=== PATIENT | female | born 1945 | race Caucasian/White ===

== ENCOUNTER → 2016-09-08 | Outpatient (CLI) | payer BC ==
[~2016-09-08] MED LIST: ASPI81TA28 PO; ATOR-54 PO; CLB200 PO; CYAN100020 PO; FENO48TA9 PO; FERR325T5 PO; HYDR25TA4 PO; LORA-741 PO; METO-551 PO; MULT-506 PO; PARO1TAB29 PO; RANI300T2 PO; SYN150 PO
--- NOTE | 2016-09-08 16:11 | MAMMOGRAPHY REPORT ---
BILATERAL DIGITAL SCREENING MAMMOGRAM WITH CAD: 09/08/2016 CLINICAL HISTORY: Routine screening. Patient has no complaints. TECHNIQUE: Current study was also evaluated with a Computer Aided Detection (CAD) system. Bilatera l CC and MLO views were obtained. COMPARISON: Comparison is made to exams dated: 09/07/2015 mammogram, 09/04/2014 mammogram, 09/03/2013 ma mmogram, 08/20/2012 mammogram, 08/19/2011 mammogram, and 07/21/2009 mammogram - [facility]. BREAST COMPOSITION: The tissue of both breasts is almost entirely fatty. FINDINGS: No suspicious masses, calcifications, or areas of architectural distortion are noted in e ither breast. There has been no significant interval change compared to prior exams. Scattered bilat eral benign-appearing calcifications are not significantly changed. IMPRESSION: ACR BI-RADS CATEGORY 2: BENIGN There is no mammographic evidence of malignancy. A 1 year screening mammogram is recommended. The p atient will receive written notification of the results. Approximately 10% of breast cancers are not detected with mammography. A negative mammographic repor t should not delay biopsy if a clinically suggestive mass is present. Maira De Leon M.D. /:09/08/2016 12:43:57 Job Coach/Job Developer: Ayah Aguillon, [facility] letter sent: Normal 1/2 BI-RADS Code: ACR BI-RADS Category 2: Benign
== END | disposition home or self-care (01) ==
LOC: C.MAMM 09:50
PROVIDERS: ATTEND Internal Medicine
DX: Z12.31 Encounter for screening mammogram for malignant neoplasm of breast (principal)

== ENCOUNTER → 2016-10-28 | Outpatient (CLI) | payer BC ==
[2016-10-28 11:14] LABS: BASO % 0.5 %; BASO ABS # 0.04 K/uL (0-0.2); COMPLETE YES; EOS % 1.4 %; HEMATOCRIT 42.3 % (37-47); IG% 0.4 %; LYMPH % 13.2 %; LYMPH ABS # 1.04 K/uL (1.2-3.4); MEAN CELL VOLUME 89.2 fL (80-100); MEAN CORPUSCULAR HEMOGLOBIN 28.9 pg (25-34); MEAN CORPUSCULAR HGB CONC 32.4 g/dl (32-36); MEAN PLATELET VOLUME 9.4 fL (7.4-10.4); NEUT % 77.5 %; PLATELET COUNT 299 K/uL (130-400); RED BLOOD COUNT 4.74 M/uL (4.2-5.4); WHITE BLOOD COUNT 7.86 K/uL (4.8-10.8)
[2016-10-28 11:29] LABS: BLOOD UREA NITROGEN 26 mg/dl (7-18); BUN/CREATININE RATIO 31.4 (10-20); CALCIUM 9.6 mg/dl (8.5-10.1); CARBON DIOXIDE 33 mmol/L (21-32); CHLORIDE 100 mmol/L (98-107); CREATININE 0.84 mg/dl (0.60-1.20); GLUCOSE 126 mg/dl (70-99); POTASSIUM 3.5 mmol/L (3.5-5.1); SODIUM 141 mmol/L (136-145)
== END | disposition home or self-care (01) ==
LOC: C.LAB1850 10:24
PROVIDERS: ATTEND Urology
DX: Z01.812 Encounter for preprocedural laboratory examination (principal); N39.41 Urge incontinence

== ENCOUNTER → 2016-10-31 | Outpatient (CLI) | payer BC ==
--- NOTE | 2016-10-31 11:05 | DIAGNOSTIC IMAGING REPORT ---
LUMBAR SPINE MRI HISTORY: Back pain LUMBAR STENOSIS TECHNIQUE: Multiplanar multisequence MRI of the lumbar spine was performed without the use of contrast. COMPARISON: None. FINDINGS: For the purpose of the report the L5-S1 disc space will be located on axial image 27 of 30. Grade 3 anterolisthesis of L4 on L5. This is associated with a posterior spondylolysis. Probable uterine fibroids. Bone marrow signal characteristics are unremarkable. L1-L2: Minimal broad-based disc bulge L2-L3: Significant multifactorial spinal stenosis. Moderate narrowing of the neuroforamina bilaterally. L3-L4: Mild transverse narrowing of spinal canal. Primarily secondary to hypertrophic changes of posterior elements. Mild broad-based bulging disc. Mild narrowing left neural foramina. L4-L5: Grade 3 anterolisthesis of L4 on L5. Posterior spondylolysis. Moderate transverse dimension narrowing of spinal canal. Significant narrowing of the neuroforamina bilaterally. L5-S1: No significant central canal or neural foraminal narrowing. IMPRESSION: 1. Grade 3 spondylolisthesis L4 on L5. 2. L4 is subluxed anteriorly 1.5 cm in relation L5. 3. Moderate transverse narrowing of spinal canal at L at L4-L5 with significant narrowing of the neural foramina bilaterally 4. Significant multifactorial spinal stenosis at L2-L3 and L3-L4. 5. Several uterine fibroids. Electronically signed by: Kwan Lye M.D. 10/31/2016 11:03 AM Dictated Date/Time: 10/31/2016 10:57 AM
== END | disposition home or self-care (01) ==
LOC: C.MRIBC 09:49
PROVIDERS: ATTEND Pain Medicine Interventional Pain Medicine
DX: M48.06 Spinal stenosis, lumbar region (principal); S33.140A Subluxation of L4/L5 lumbar vertebra, initial encounter; X58.XXXA Exposure to other specified factors, initial encounter; D25.9 Leiomyoma of uterus, unspecified

== ENCOUNTER → 2016-12-22 | Outpatient (CLI) | payer BC ==
[2016-12-22 10:54] LABS: ALT/SGPT 35 U/L (12-78); BLOOD UREA NITROGEN 29 mg/dl (7-18); CARBON DIOXIDE 35 mmol/L (21-32); CHLORIDE 100 mmol/L (98-107); CHOLESTEROL 165 mg/dl (0-200); CREATININE 0.91 mg/dl (0.60-1.20); GLUCOSE 85 mg/dl (70-99); POTASSIUM 3.2 mmol/L (3.5-5.1); SODIUM 141 mmol/L (136-145); TRIGLYCERIDES 75 mg/dl (0-150); VERY LOW DENSITY LIPOPROT CALC 15 mg/dl
[2016-12-22 10:59] LABS: CALCIUM 9.8 mg/dl (8.5-10.1)
[2016-12-22 11:05] LABS: ALB/GLOB RATIO 1.2 (0.9-2); ALKALINE PHOSPHATASE 64 U/L (45-117); AST/SGOT 23 U/L (15-37); CHOLESTEROL/HDL RATIO 2.1; HDL CHOLESTEROL 80 mg/dl; LDL CHOLESTEROL CALCULATED 70 mg/dl
== END | disposition home or self-care (01) ==
LOC: C.LAB1850 09:18
PROVIDERS: ATTEND Internal Medicine
DX: E03.9 Hypothyroidism, unspecified (principal); E78.00 Pure hypercholesterolemia, unspecified; E55.9 Vitamin D deficiency, unspecified; I10 Essential (primary) hypertension

== ENCOUNTER → 2017-01-30 | Outpatient (CLI) | payer BC ==
[2017-01-30 17:55] LABS: BLOOD UREA NITROGEN 35 mg/dl (7-18); BUN/CREATININE RATIO 40.6 (10-20); CARBON DIOXIDE 33 mmol/L (21-32); CHLORIDE 102 mmol/L (98-107); CREATININE 0.87 mg/dl (0.60-1.20); GLUCOSE 91 mg/dl (70-99); POTASSIUM 3.8 mmol/L (3.5-5.1); SODIUM 142 mmol/L (136-145)
[2017-01-30 18:03] LABS: CALCIUM 9.7 mg/dl (8.5-10.1)
== END ==
LOC: C.LABBFT 12:16
PROVIDERS: ATTEND Internal Medicine
DX: E87.6 Hypokalemia (principal)

== ENCOUNTER → 2017-05-05 | Outpatient (CLI) | payer BC ==
[2017-05-05 12:12] LABS: BASO % 0.4 %; BASO ABS # 0.03 K/uL (0-0.2); COMPLETE YES; EOS % 2.4 %; HEMATOCRIT 43.4 % (37-47); IG% 0.3 %; LYMPH % 17.9 %; LYMPH ABS # 1.29 K/uL (1.2-3.4); MEAN CELL VOLUME 91.6 fL (80-100); MEAN CORPUSCULAR HEMOGLOBIN 30.2 pg (25-34); MEAN CORPUSCULAR HGB CONC 32.9 g/dl (32-36); MEAN PLATELET VOLUME 9.8 fL (7.4-10.4); MONO % 10.1 %; NEUT % 68.9 %; PLATELET COUNT 269 K/uL (130-400); RED BLOOD COUNT 4.74 M/uL (4.2-5.4)
[2017-05-05 12:42] LABS: BLOOD UREA NITROGEN 29 mg/dl (7-18); BUN/CREATININE RATIO 36.5 (10-20); CALCIUM 9.7 mg/dl (8.5-10.1); CARBON DIOXIDE 34 mmol/L (21-32); CHLORIDE 102 mmol/L (98-107); GLUCOSE 84 mg/dl (70-99); POTASSIUM 3.5 mmol/L (3.5-5.1); SODIUM 140 mmol/L (136-145)
== END | disposition home or self-care (01) ==
LOC: C.LAB1850 11:30
PROVIDERS: ATTEND Urology
DX: Z01.812 Encounter for preprocedural laboratory examination (principal); N39.41 Urge incontinence

== ENCOUNTER → 2017-08-30 | Outpatient (CLI) | payer BC ==
[~2017-08-30] MED LIST changes: +CALC500C3 PO; +CEPH500C2 PO; +CHOL20007 PO; +CIPR1TAB11 PO; -CLB200 PO; -CYAN100020 PO; -FERR325T5 PO; +LEVO150T9 PO; -LORA-741 PO; -METO-551 PO; +METO25TA56 PO; -MULT-506 PO; -RANI300T2 PO; +RXC5 PO; -SYN150 PO
== END | disposition home or self-care (01) ==
LOC: C.LABSPEC 10:00
PROVIDERS: ATTEND Physician Assistant
DX: R39.9 Unspecified symptoms and signs involving the genitourinary system (principal)

== ENCOUNTER 2017-09-12 09:18 | Inpatient (IN) | payer BC, OTHER ==
[2017-08-17 11:44] VITALS: BMI 55.0
--- NOTE | 2017-08-17 12:21 | PAT Medication Instructions ---
Service Date Aug 17, 2017. Current Home Medication List Aspirin (Aspirin Ec), 81 MG PO HS Atorvastatin (Lipitor), 20 MG PO HS Calcium Carbonate (Tums), 1 TAB PO DAILY PRN for Indigestion Cholecalciferol (Vitamin D3), 5,000 UNITS PO HS Ciprofloxacin Tab (Cipro), 250 MG PO HS Fenofibrate (Tricor), 48 MG PO HS Hydrochlorothiazide (Hctz), 25 MG PO QAM Levothyroxine Sodium (Levothyroxine Sodium), 1 TAB PO QAM Metoprolol Tartrate (Lopressor) (Lopressor), 25 MG PO HS Paroxetine (Paxil), 40 MG PO QAM Medication Instructions For Your Scheduled Surgery - Hold the following medications 7 days prior to surgery per your surgeon's instructions: Aspirin (Aspirin Ec), 81 MG PO HS - Hold the following medications 24 hours prior to surgery: Fenofibrate (Tricor), 48 MG PO HS (do not take the night before surgery) - Hold the following medications the morning of surgery: Hydrochlorothiazide (Hctz), 25 MG PO QAM Calcium Carbonate (Tums), 1 TAB PO DAILY PRN for Indigestion - Take the following medications the morning of surgery with a sip of water: Paroxetine (Paxil), 40 MG PO QAM Levothyroxine Sodium (Levothyroxine Sodium), 1 TAB PO QAM - Take the following medications as scheduled the night before surgery: Metoprolol Tartrate (Lopressor) (Lopressor), 25 MG PO HS Cholecalciferol (Vitamin D3), 5,000 UNITS PO HS Ciprofloxacin Tab (Cipro), 250 MG PO HS Calcium Carbonate (Tums), 1 TAB PO DAILY PRN for Indigestion (if needed) Atorvastatin (Lipitor), 20 MG PO HS If you have any questions please call us at [phone] or [phone] or [phone]
--- NOTE | 2017-08-17 13:14 | DIAGNOSTIC IMAGING REPORT ---
CHEST 2 VIEWS ROUTINE CLINICAL HISTORY: 72 years-old Female presenting with preadmission chest x-ray. TECHNIQUE: PA and lateral views of the chest were obtained. COMPARISON: 04/08/2014. FINDINGS: Cardiac silhouette mildly enlarged as on prior exam. Tortuosity of the descending thoracic aorta. Lower lung opacity notable on lateral view, which may be either on the right or left on frontal view. No large effusion or pneumothorax. Degenerative changes of the thoracic spine. Upper abdomen normal. IMPRESSION: 1. Cardiomegaly with lower lung opacities possibly atelectasis. Electronically signed by: Stef Mir M.D. 08/17/2017 1:12 PM Dictated Date/Time: 08/17/2017 1:11 PM
[2017-08-17 13:34] LABS: BASO % 0.5 %; BASO ABS # 0.04 K/uL (0-0.2); EOS % 1.7 %; EOS ABS # 0.14 K/uL (0-0.5); HEMATOCRIT 41.6 % (37-47); HEMOGLOBIN 13.4 g/dL (12.0-16.0); IG# 0.02 K/uL (0.00-0.02); LYMPH % 13.3 %; LYMPH ABS # 1.13 K/uL (1.2-3.4); MEAN CELL VOLUME 90.6 fL (80-100); MEAN CORPUSCULAR HEMOGLOBIN 29.2 pg (25-34); MEAN CORPUSCULAR HGB CONC 32.2 g/dl (32-36); MEAN PLATELET VOLUME 10.1 fL (7.4-10.4); MONO % 8.3 %; NEUT ABS # 6.45 K/uL (1.4-6.5); PLATELET COUNT 280 K/uL (130-400); RED CELL DISTRIBUTION WIDTH CV 14.7 % (11.5-14.5); WHITE BLOOD COUNT 8.48 K/uL (4.8-10.8)
[2017-08-17 15:24] LABS: CALCIUM 9.5 mg/dl (8.5-10.1); CREATININE 0.8 mg/dl (0.60-1.20); POTASSIUM 3.8 mmol/L (3.5-5.1)
[~2017-09-12] VITALS: Ht 154.9 cm; Wt 130.6 kg
[2017-09-12] VITALS (8 sets, daily range): BP systolic 107–131; BP diastolic 54–69; PULSE 62–75; TEMP 36.4–37; O2SAT 92–100; Ht 154.9 cm; Wt 130.6 kg
[~2017-09-12 09:18] MED LIST changes: +CEFAZOLIN 3000MG IV PUSH 15 ML IV SCH; +CEFAZOLIN IV 3,000 MG in SYRINGE 0 ML IV SCH; -CEPH500C2 PO; +LACTATED RINGER'S 1000ML 1,000 ML IV SCH; -RXC5 PO
[2017-09-12] MEDS ORDERED: CEPH500C2 PO (09:56)
[2017-09-12] MEDS ORDERED: FENTANYL CITRATE INJ 50 MCG/1 ML 2 ML VIAL ONE ×4 (10:32→14:07)
[2017-09-12] MEDS ORDERED: MIDAZOLAM HCL 1 MG/ML 2ML VIAL ONE (10:32)
--- NOTE | 2017-09-12 10:48 | History & Physical Bridge Note ---
H&P Re-Evaluation Bridge Note: I have examined the patient, reviewed the History & Physical and in the interval since the performance of the History & Physical I have noted the following changes of clinical significance: No changes noted
--- NOTE | 2017-09-12 10:50 | History and Physical ---
History & Physical Date Sep 12, 2017. Chief Complaint Back and leg pain History of Present Illness The patient is a 72 year old female with complaints of back and leg pain Past Medical/Surgical History Medical Problems: (1) Anxiety State Nos (2) Esophageal Reflux (3) Hypertension Nos (4) Hypothyroidism Nos (5) Morbid Obesity (6) Osteoporosis Nos (7) Polyarthritis Nos-Mult (8) Right lower lobe pneumonia Additional History Hepatic Disease: No Endocrine Disorder: No Kidney Disease: No Hypertension: Yes Heart Disease: No Bleeding Tendencies: No Infectious Diseases: No Allergies Coded Allergies: No Known Allergies (Verified , 09/12/17) Home Medications Scheduled Aspirin (Aspirin Ec), 81 MG PO HS Atorvastatin (Lipitor), 20 MG PO HS Cephalexin Monohydrate (Keflex), 500 MG PO DAILY Cholecalciferol (Vitamin D3), 5,000 UNITS PO HS Fenofibrate (Tricor), 48 MG PO HS Hydrochlorothiazide (Hctz), 25 MG PO QAM Levothyroxine Sodium (Levothyroxine Sodium), 1 TAB PO QAM Metoprolol Tartrate (Lopressor) (Lopressor), 25 MG PO HS Paroxetine (Paxil), 40 MG PO QAM Scheduled PRN Calcium Carbonate (Tums), 1 TAB PO DAILY PRN for Indigestion Physical Examination Skin: warm/dry, no rash Eyes: normal inspection, EOMI, sclerae normal ENT: normal ENT inspection, pharynx normal Head: normocephalic, atraumatic Neck: supple, no adenopathy, trachea midline Respiratory/Chest: lungs clear, normal breath sounds, no respiratory distress Cardiovascular: regular rate, rhythm, no edema, no murmur Abdomen / GI: normal bowel sounds, non tender Back: normal inspection Extremities: normal inspection, normal range of motion Neurologic/Psych: no motor/sensory deficits, alert, normal reflexes, oriented x 3 Diagnosis Lumbar spinal stenosis with spondylolisthesis Plan of Treatment L2 to L5 decompression fusion
[2017-09-12] MEDS ORDERED: BACITRACIN 50000 UNIT VIAL ONE (10:59)
[2017-09-12] MEDS ORDERED: ALBUMIN HUMAN 5% 12.5 GM/250 ML VIAL IV ONE (11:00)
[2017-09-12] MEDS ORDERED: BUPIVACAINE 0.5 % 5 MG/1 ML MPF 30ML VIAL ONE (11:01)
[2017-09-12] MEDS ORDERED: EpINEphrine INJ 1MG/ML AMP 1 MG/ML AMP ONE (11:02)
[2017-09-12] MEDS ORDERED: HYDROmorphone INJ 2 MG/ML SYR/VIAL ONE ×2 (11:48→13:35)
[2017-09-12] MEDS ORDERED: ROCURONIUM BROMIDE 10 MG/ML 5 ML VIAL IV ONE (13:29)
[2017-09-12] MEDS ORDERED: EpHEDrine SULFATE 50MG/5ML SYR ONE ×2 (13:29→13:37)
[2017-09-12] MEDS ORDERED: DEXAMETHASONE SOD INJ 4 MG/ML VIAL ONE (13:29)
[2017-09-12] MEDS ORDERED: LIDOCAINE HCL 2% 2 ML VIAL (20MG/ML) ONE (13:29)
[2017-09-12] MEDS ORDERED: PROPOFOL IV EMULSION 10 MG/ML 20 ML VIAL IV ONE (13:29)
[2017-09-12] MEDS ORDERED: KETOROLAC TROMETHAMINE 30 MG/ML VIAL ONE (13:37)
[2017-09-12] MEDS ORDERED: GLYCOPYRROLATE INJ 0.2 MG/ML VIAL ONE (13:37)
[2017-09-12] MEDS ORDERED: NEOSTIGMINE METHYLSULFATE 1 MG/ML 10ML VIAL ONE (13:37)
[2017-09-12] MEDS ORDERED: ONDANSETRON INJ 2 MG/ML 2 ML VIAL ONE (13:37)
[2017-09-12] MEDS ORDERED: EpHEDrine SULFATE INJ 50 MG/ML AMP IV PRN (13:45)
[2017-09-12] MEDS ORDERED: PROMETHAZINE HCL INJ 12.5 MG in SODIUM CHLORIDE 0.9% 50ML 50 ML IV PRN ×2 (13:45→15:00)
[2017-09-12] MEDS ORDERED: ATROPINE SULFATE 0.1 MG/ML 5ML SYR IV PRN (13:45)
[2017-09-12] MEDS ORDERED: NALOXONE HCL 0.4 MG/1 ML VIAL/CARP IV PRN ×3 (13:45→15:00)
[2017-09-12] MEDS ORDERED: ONDANSETRON INJ 2 MG/ML 2 ML VIAL IV PRN ×2 (13:45→15:00)
[2017-09-12] MEDS ORDERED: FLUMAZENIL 0.1 MG/1 ML 10 ML VIAL IV PRN (13:45)
[2017-09-12] MEDS ORDERED: HYDROmorphone INJ 1 MG/ML SYR IV PRN (13:45)
[2017-09-12] MEDS ORDERED: LABETALOL HCL IV 5 MG/ML 20ML IV PRN (13:45)
[2017-09-12] MEDS ORDERED: FLOSEAL HEMOSTATIC MATRIX 10ML TOP ONE (14:30)
--- NOTE | 2017-09-12 14:38 | DIAGNOSTIC IMAGING REPORT ---
LUMBAR SPINE, INTRAOPERATIVE FLUOROSCOPY HISTORY: L2-L5 decompression and fusion. FLUOROSCOPY TIME: 57 seconds. FINDINGS: Intraoperative fluoroscopy was provided for the lumbar spine. 4 fluoroscopic spot images were obtained. Posterior decompression fusion from L2 through S1 with pedicle screws and rods. The hardware appears intact. IMPRESSION: Fluoroscopy provided for a L2-S1 posterior decompression and fusion. Electronically signed by: Gilmar Zurita M.D. 09/12/2017 2:37 PM Dictated Date/Time: 09/12/2017 2:35 PM
[2017-09-12] MEDS ORDERED: SODIUM CHLORIDE 0.9% 1000ML 1,000 ML IV SCH (14:58)
--- NOTE | 2017-09-12 14:58 | [facility] Operative Report ---
Operative Report Operative Date Sep 12, 2017. Pre-Operative Diagnosis Lumbar spinal stenosis with spondylolisthesis Post-Operative Diagnosis Lumbar spinal stenosis with spondylolisthesis Procedure(s) Performed To 3 L3 4 for 5. #2 posterior spinal fusion L2 3 L3 4 L4 5 L5-S1. #3 posterior segmental S rotation L2 3 L3 4 L4 5 L5-S1. #4 placement locally harvested morcellized autograft posterior gutters. #5 placement infuse collagen sponge by mask graft in the posterior lateral gutters. Surgeon Dr. Олге Magallanes Training Generalist Surgeon(s) None Estimated Blood Loss 500ml Findings Severe spinal stenosis with spondylolisthesis Specimens None per surgeon Description of Procedure Patient was met with preoperatively case discussed all questions addressed. After informed consent obtained patient was taken to the operative suite underwent intubation and placed in a prone position the Berto table on top of the Brandon frame. All bony prominences were well-padded eyes inspected to ensure no external pressure placed upon them. This point the lumbar spines prepped and draped in normal sterile fashion. Sharp dissection with the assistance of Bovie cautery was performed onto an exposing the lamina and transverse processes of L2-L3 L4-L5 sacral alar bilaterally. From a caudal to cephalad fashion complete laminectomy of L4 L3 L2 was performed addressing severe lateral recess and foraminal stenosis. Pedicle screws are then placed in L2-L3 L4 L5 S1 levels bilaterally with assistance of fluoroscopy in the purposes stefanie placed. A cross-link was locked in position. The transverse processes of L2-L3 L4-L5 burred to subcortical bleeding bone. Infuse collagen sponge mask graft and locally harvested morcellized autograft was placed in the posterior gutters. Patient was awakened taken to PACU in stable condition. I attest to the content of the Intraoperative Record and any orders documented therein. Any exceptions are noted below.
[2017-09-12] MEDS ORDERED: ALUMINUM/MAGNESIUM SUSP 30 ML UDC PO PRN (15:00)
[2017-09-12] MEDS ORDERED: MAGNESIUM HYDROXIDE SUSP 30 ML UDC PO PRN (15:00)
[2017-09-12] MEDS ORDERED: LORAZEPAM INJ 0.5 MG in SYRINGE 0.75 ML IV PRN (15:00)
[2017-09-12] MEDS ORDERED: METOCLOPRAMIDE HCL INJ 5 MG/ML 2 ML VIAL IV PRN (15:00)
[2017-09-12] MEDS ORDERED: BISACODYL 10 MG SUPP PR PRN (15:00)
[2017-09-12] MEDS ORDERED: ACETAMINOPHEN IV 100 ML IV PRN (15:00)
[2017-09-12] MEDS ORDERED: LORAZEPAM 0.5 MG TAB PO PRN (15:00)
[2017-09-12] MEDS ORDERED: hydrOXYzine HCL 25 MG TAB PO PRN (15:00)
[2017-09-12] MEDS ORDERED: FAMOTIDINE 20 MG TAB PO PRN (15:00)
[2017-09-12] MEDS ORDERED: DO NOT ADMINISTER PNEUMOCOCCAL VACCINE PRN (15:00)
[2017-09-12] MEDS ORDERED: SOD PHOSPHATE/SOD BIPHOSPHATE ENEMA 132 ML BTL PR PRN (15:00)
[2017-09-12] MEDS ORDERED: ACETAMINOPHEN 500 MG TAB PO PRN (15:00)
[2017-09-12] MEDS ORDERED: HYDROmorphone HCL 0.5MG/ML 50 ML CASSETTE ONE (15:16)
--- NOTE | 2017-09-12 15:54 | Anesthesiology Progress Note ---
Anesthesia Post Op Note Date & Time Sep 12, 2017 at 15:52 Vital Signs Pain Intensity: 0 Vital Signs Past 12 Hours Date Time Temp Pulse Resp B/P (MAP) Pulse Ox O2 Delivery O2 Flow Rate FiO2 09/12/17 15:40 59 16 117/58 95 Oxymask 3 09/12/17 15:30 71 16 140/59 97 Oxymask 5 09/12/17 15:20 74 16 125/64 97 Oxymask 10 09/12/17 15:10 75 16 130/72 96 Oxymask 10 09/12/17 15:04 36.6 84 16 135/70 94 Oxymask 10 09/12/17 10:01 95 Room Air Notes Mental Status: alert / awake / arousable, participated in evaluation Pt Amnestic to Procedure: Yes Nausea / Vomiting: adequately controlled Pain: adequately controlled Airway Patency, RR, SpO2: stable & adequate BP & HR: stable & adequate Hydration State: stable & adequate Anesthetic Complications: no major complications apparent
[2017-09-12] MEDS: HYDROmorphone HCL 0.5MG/ML 50 ML CASSETTE IV PRN ×2 (16:18→22:48)
[2017-09-12 16:27] LABS: HEMATOCRIT 36.4 % (37-47)
[2017-09-12] MEDS: SODIUM CHLORIDE 0.9% 1000ML 1,000 ML IV SCH (19:58)
[2017-09-12] MEDS: CEFAZOLIN IV 3,000 MG in SYRINGE 0 ML IV SCH (20:24)
[2017-09-12] MEDS: DOCUSATE SODIUM/SENNA 50/8.6MG TAB PO SCH (20:32)
[2017-09-12] MEDS: ATORVASTATIN 20 MG TAB PO SCH (20:32)
[2017-09-12] MEDS: ASPIRIN 81 MG ECTAB PO SCH (20:32)
[2017-09-12] MEDS: FENOFIBRATE 48 MG TAB PO SCH (20:32)
[2017-09-12] MEDS: METOPROLOL TARTRATE 25 MG TAB PO SCH (20:33)
[2017-09-12] MEDS ORDERED: NURSING VERBAL MED ORDER ONE (22:00)
--- NOTE | 2017-09-12 22:03 | Medical Consult ---
Consultation Date of Consultation: Sep 12, 2017. Attending Physician: Олег Magallanes D.O. Reason for Consultation: Medical Management History of Present Illness This patient is a 72-year-old female with a history of hypertension, hypothyroidism, obesity, osteoporosis, GERD, anxiety disorder, hyperlipidemia, and lumbar spinal stenosis, who is here status post L2 to L5 decompression and fusion by Dr. Magallanes earlier today. She is doing fairly well postoperatively. She denies chest pain or shortness of breath, denies nausea or vomiting, denies abdominal pain. Her last bowel movement was this morning before the surgery. There've been no postoperative complications. Past Medical/Surgical History PMH: hypertension hypothyroidism obesity osteoporosis GERD anxiety disorder hyperlipidemia lumbar spinal stenosis Vitamin D deficiency PSH: L2-L5 decompression and fusion Bilateral TKAs Right DENTON Appendectomy Umbilical hernia repair Family History Noncontributory Social History Smoking Status: Never Smoker Alcohol Use: none Drug Use: none Marital Status: Housing Status: lives with significant other Occupation Status: retired Allergies Coded Allergies: No Known Allergies (Verified , 09/12/17) Home Medications Reported Home Medications Medications Dose Route/Sig Max Daily Dose Days Date Category Keflex (Cephalexin Monohydrate) 500 Mg Cap 500 Mg PO DAILY 09/12/17 Reported Tums (Calcium Carbonate) 500 Mg Chew 1 Tab PO DAILY PRN 08/17/17 Reported Levothyroxine Sodium 150 Mcg Tab 1 Tab PO QAM 90 08/17/17 Reported Vitamin D3 (Cholecalciferol) 2,000 Unit Tab 5,000 Units PO HS 90 08/17/17 Reported Lopressor (Metoprolol Tartrate) 25 Mg Tab 25 Mg PO HS 08/17/17 Reported Hctz (Hydrochlorothiazide) 25 Mg Tab 25 Mg PO QAM 12/26/13 Reported Tricor (Fenofibrate) 48 Mg Tab 48 Mg PO HS 12/26/13 Reported Aspirin Ec (Aspirin) 81 Mg Tab 81 Mg PO HS 12/26/13 Reported Lipitor (Atorvastatin) 20 Mg Tab 20 Mg PO HS 12/26/13 Reported Paxil (Paroxetine HCl) 40 Mg Tab 40 Mg PO QAM 02/11/10 Reported Current Inpatient Medications Current Inpatient Medications Medications (Trade) Dose Ordered Sig/Pankaj Route Start Time Stop Time Status Last Admin Dose Admin Promethazine HCl 12.5 mg/Sodium Chloride 50.5 ml @ 202 mls/hr Q6H PRN IV 09/12/17 15:00 10/12/17 14:59 Ondansetron HCl (Zofran Inj) 4 mg Q6H PRN IV 09/12/17 15:00 10/12/17 14:59 Metoclopramide HCl (Reglan Inj) 10 mg Q6H PRN IV 09/12/17 15:00 10/12/17 14:59 Lorazepam (Ativan Tab) 0.5 mg Q8H PRN PO 09/12/17 15:00 10/12/17 14:59 Lorazepam 0.5 mg/ Syringe 1 ml @ 1 mls/min Q8H PRN IV 09/12/17 15:00 10/12/17 14:59 Pneumococcal Polysaccharide Vaccine 1 ea PRN PRN N/A 09/12/17 15:00 10/12/17 14:59 Polyethylene (Miralax Powder Packet) 17 gm Q6 PO 09/14/17 06:00 10/14/17 05:59 Bisacodyl (Dulcolax Supp) 10 mg DAILY PRN PA 09/12/17 15:00 10/12/17 14:59 Magnesium Hydroxide (Milk Of Magnesia Susp) 30 ml DAILY PRN PO 09/12/17 15:00 10/12/17 14:59 Hydromorphone HCl (Dilaudid Inj) 0.5 mg Q3H PRN IV 09/13/17 06:00 09/27/17 05:59 Oxycodone HCl (Roxicodone Immediate Rel Tab) 5-10mg prn moderate to sev... Q4H PRN PO 09/13/17 06:00 09/27/17 05:59 Cefazolin Sodium 3000 mg/Syringe 15 ml @ 3 mls/min Q8H IV 09/12/17 20:00 09/13/17 04:04 09/12/17 20:24 3 MLS/MIN Sodium Chloride 1,000 ml @ 150 mls/hr Q6H40M IV 09/12/17 16:30 10/12/17 16:29 09/12/17 19:58 150 MLS/HR Acetaminophen (Tylenol Tab) 1,000 mg Q8H PRN PO 09/12/17 15:00 10/12/17 14:59 Acetaminophen 100 ml @ 400 mls/hr Q8H PRN IV 09/12/17 15:00 10/12/17 14:59 Naloxone HCl (Narcan Inj) 0.1 mg Q5M PRN IV 09/12/17 15:00 10/12/17 14:59 Senna/Docusate Sodium (Senokot S Tab) 2 tab HS PO 09/12/17 21:00 10/12/17 20:59 09/12/17 20:32 2 TAB Sodium Biphosphate/ Sodium Phosphate (Fleet Enema) 132 ml ONE PRN PA 09/12/17 15:00 10/12/17 14:59 Hydroxyzine HCl (Vistaril Tab) 25 mg Q8H PRN PO 09/12/17 15:00 10/12/17 14:59 Al Hydroxide/Mg Hydroxide (Maalox Susp) 30 ml Q6H PRN PO 09/12/17 15:00 10/12/17 14:59 Famotidine (Pepcid Tab) 20 mg Q12 PRN PO 09/12/17 15:00 10/12/17 14:59 Diphenhydramine HCl (Benadryl Cap) 25 mg Q6H PRN PO 09/12/17 15:00 10/12/17 14:59 Miscellaneous Information (Discontinue MANAGER PIPELINE) 1 ea ONE ONCE N/A 09/13/17 06:00 09/13/17 06:01 Naloxone HCl (Narcan Inj) 0.1 mg Q5M PRN IV 09/12/17 15:00 09/13/17 06:00 Hydromorphone HCl (Dilaudid Supervisor Cooler Service) 25 mg PRN PRN IV 09/12/17 15:00 09/13/17 06:00 09/12/17 16:18 25 MG Sodium Chloride 1,000 ml @ 15 mls/hr Q24H IV 09/12/17 14:58 09/13/17 06:00 Aspirin (Ecotrin Tab) 81 mg HS PO 09/12/17 21:00 10/12/17 20:59 09/12/17 20:32 81 MG Atorvastatin Calcium (Lipitor Tab) 20 mg HS PO 09/12/17 21:00 10/12/17 20:59 09/12/17 20:32 20 MG Fenofibrate (Tricor Tab) 48 mg HS PO 09/12/17 21:00 10/12/17 20:59 09/12/17 20:32 48 MG Hydrochlorothiazide (Hydrochlorothiazide Tab) 25 mg QAM PO 09/13/17 09:00 10/13/17 08:59 Levothyroxine Sodium (Synthroid Tab) 150 mcg DAILYBB PO 09/13/17 06:00 10/13/17 05:59 Metoprolol Tartrate (Lopressor Tab) 25 mg HS PO 09/12/17 21:00 10/12/17 20:59 09/12/17 20:33 25 MG Paroxetine HCl (pAXil TAB) 40 mg QAM PO 09/13/17 09:00 10/13/17 08:59 Hydromorphone HCl (Dilaudid Inj) 1 mg Q3H PRN IV 09/13/17 06:00 09/27/17 05:59 Review of Systems Constitutional: No problem reported Eyes: No problem reported ENT: No problem reported Respiratory: No problem reported Cardiovascular: No problem reported Abdomen: No problem reported Musculoskeletal: No problem reported Genitourinary - Female: No problem reported Neurologic: No problem reported Psychiatric: No problem reported Endocrine: No problem reported Hematologic / Lymphatic: No problem reported Integumentary: No problem reported Allergic / Immunologic: No problem reported Physical Exam Date Time Temp Pulse Resp B/P (MAP) Pulse Ox O2 Delivery O2 Flow Rate FiO2 09/12/17 20:30 75 124/66 (85) 09/12/17 19:22 71 16 124/68 (86) 92 Nasal Cannula 1.0 09/12/17 18:33 37.0 64 17 126/57 (80) 93 Nasal Cannula 2.0 09/12/17 17:17 36.4 63 16 131/66 (87) 97 Nasal Cannula 3.0 09/12/17 16:54 36.5 64 17 112/64 (80) 97 3.0 09/12/17 16:20 100 Nasal Cannula 3.0 09/12/17 16:20 36.7 62 16 107/54 (71) 100 Nasal Cannula 3.0 09/12/17 16:20 100 Nasal Cannula 3.0 09/12/17 16:00 54 16 128/50 98 Nasal Cannula 3 09/12/17 15:50 36.5 55 16 136/54 97 Nasal Cannula 3 09/12/17 15:40 59 16 117/58 95 Oxymask 3 09/12/17 15:30 71 16 140/59 97 Oxymask 5 09/12/17 15:20 74 16 125/64 97 Oxymask 10 09/12/17 15:10 75 16 130/72 96 Oxymask 10 09/12/17 15:04 36.6 84 16 135/70 94 Oxymask 10 09/12/17 10:01 95 Room Air General Appearance: WD/WN, no apparent distress, + obese Head: normocephalic, atraumatic Eyes: normal inspection, sclerae normal ENT: hearing grossly normal Neck: trachea midline Respiratory/Chest: lungs clear, normal breath sounds, no respiratory distress, no accessory muscle use Cardiovascular: regular rate, rhythm, no edema, no gallop, no murmur Abdomen/GI: normal bowel sounds, non tender, soft, no organomegaly Extremities/Musculoskelatal: normal inspection, no calf tenderness, normal capillary refill, no pedal edema Neurologic/Psych: alert, normal mood/affect, oriented x 3 Skin: normal color, warm/dry, no rash Lymphatic: no adenopathy Laboratory Results Last 24 Hours Test 09/12/17 16:19 Hemoglobin 12.0 g/dL Hematocrit 36.4 % Assessment & Plan This patient is a 72-year-old female with a history of hypertension, hypothyroidism, obesity, osteoporosis, GERD, anxiety disorder, hyperlipidemia, and lumbar spinal stenosis, who is here status post L2 to L5 decompression and fusion by Dr. Magallanes. She is doing fairly well postoperatively. L2-L5 decompression and fusion-management postoperatively as per orthopedics -Pain control -SCDs for DVT prophylaxis -Follow postoperative CBC in the morning [id number] -Continue metoprolol tartrate 25 mg by mouth daily at bedtime -Continue HCTZ -Follow renal function in the morning Hyperlipidemia-stable -Continue fenofibrate, atorvastatin, aspirin 81 mg daily Hypothyroidism-TSH November/2016 normal -Continue home dose of levothyroxine Osteoporosis/vitamin D deficiency-stable, vitamin D level checked last year was 17 -Restart calcium and vitamin D upon discharge Anxiety disorder-stable -Continue Paxil daily GERD-stable, not currently on medications at home Prophylaxis-SCDs Disposition-to home when stable from an orthopedic perspective Full code Additional Copies To RV. Fantasma, MD
[2017-09-13] VITALS (8 sets, daily range): BP systolic 108–138; BP diastolic 62–82; PULSE 60–70; TEMP 36.5–37.2; O2SAT 93–97
[2017-09-13] MEDS: SODIUM CHLORIDE 0.9% 1000ML 1,000 ML IV SCH (02:06)
[2017-09-13] MEDS: CEFAZOLIN IV 3,000 MG in SYRINGE 0 ML IV SCH (03:28)
[2017-09-13] MEDS: LEVOTHYROXINE 150 MCG TAB PO SCH (05:51)
[2017-09-13] MEDS ORDERED: COUGH DROP (SUGAR FREE) LOZ 24 LOZ/1 BOX ONE (05:56)
[2017-09-13] MEDS: OXYCODONE HCL IR 5 MG TAB (IMMEDIATE RELEASE) PO PRN ×4 (05:57→22:36)
[2017-09-13] MEDS ORDERED: DC PCA ONE (06:00)
[2017-09-13] MEDS ORDERED: NURSING VERBAL MED ORDER ONE (06:00)
[2017-09-13] MEDS ORDERED: HYDROmorphone INJ 1 MG/ML SYR IV PRN (06:00)
[2017-09-13] MEDS ORDERED: HYDROmorphone INJ 0.5 MG/0.5 ML SYR IV PRN (06:00)
[2017-09-13 06:34] LABS: HEMATOCRIT 33.3 % (37-47); HEMOGLOBIN 10.5 g/dL (12.0-16.0); IG# 0.03 K/uL (0.00-0.02); LYMPH % 5.5 %; LYMPH ABS # 0.72 K/uL (1.2-3.4); MEAN CELL VOLUME 91.5 fL (80-100); MEAN CORPUSCULAR HEMOGLOBIN 28.8 pg (25-34); MEAN CORPUSCULAR HGB CONC 31.5 g/dl (32-36); MEAN PLATELET VOLUME 9.5 fL (7.4-10.4); MONO % 7.5 %; MONO ABS # 0.99 K/uL (0.11-0.59); NEUT % 86.8 %; PLATELET COUNT 245 K/uL (130-400); RED CELL DISTRIBUTION WIDTH CV 14.9 % (11.5-14.5); RED CELL DISTRIBUTION WIDTH SD 50.4 fL (36.4-46.3); WHITE BLOOD COUNT 13.14 K/uL (4.8-10.8)
[2017-09-13 07:03] LABS: CALCIUM 8.3 mg/dl (8.5-10.1); CREATININE 0.98 mg/dl (0.60-1.20); POTASSIUM 4.3 mmol/L (3.5-5.1)
--- NOTE | 2017-09-13 08:19 | Anesthesiology Progress Note ---
Anesthesia Post Op Note Date & Time Sep 13, 2017 at 08:18 Vital Signs Pain Intensity: 4.0 Vital Signs Past 12 Hours Date Time Temp Pulse Resp B/P (MAP) Pulse Ox O2 Delivery O2 Flow Rate FiO2 09/13/17 07:41 36.6 64 18 110/62 (78) 94 Room Air 09/13/17 07:25 Room Air 09/13/17 03:10 36.6 63 18 108/65 (79) 94 Room Air 09/12/17 23:30 Room Air 09/12/17 22:54 36.6 63 18 110/69 (83) 92 Room Air 09/12/17 20:30 75 124/66 (85) Notes Pt sleeping. Did not wake to evaluate.
--- NOTE | 2017-09-13 08:24 | Clinical Documentation Query ---
[facility] [place] : CLINICAL DOCUMENTATION QUERY Patient is a 72 year old female admitted for posterior lumbar decompression and fusion. Preoperative hemoglobin and hematocrit were 13.4 g/dl and 41.6%. POD #1, repeat values are 10.5 g/dl and 33.3%. EBL for the procedure was 500 ml's with subsequent losses of an additional 580 ml's to date. She is being monitored with serial hematology and I/O including drain outputs. Please clarify as clinically appropriate. Thank you. In your clinical opinion is this patient being managed for: ( x ) Acute blood loss anemia ( ) Not Agree ( ) Other explanation of clinical findings (Please Explain) ( ) Unable to determine (Please Define) ( ) Need to Discuss The medical record reflects the following clinical findings, treatment, and risk factors. Clinical Indicators: As above Treatment: She is being monitored with serial hematology and I/O including drain outputs Risk Factors: Acute blood losses Please clarify and document your clinical opinion in the progress notes and discharge summary. Terms such as "probable", "suspected", "likely", "questionable", "possible", or "still to be ruled out" are acceptable. IF IN AGREEMENT, YOU MUST DOCUMENT ABOVE DIAGNOSTIC STATEMENT IN DAILY PROGRESS NOTES AND DISCHARGE SUMMARY. This document is not part of the patient's record. Thank You, Luther Fischer RN [phone]
[2017-09-13] MEDS: HYDROCHLOROTHIAZIDE 25 MG TAB PO SCH (08:38)
[2017-09-13] MEDS: PAROXETINE 20 MG TAB PO SCH (08:38)
--- NOTE | 2017-09-13 10:57 | Progress Note ---
Subjective Date of Service: Sep 13, 2017. Subjective Pt evaluation today including: conversation w/ patient Patient reports feeling well. Patient has no significant complaints. Patient is resting comfortably. He reports that his leg pain and back pain is controlled. Patient denies any palpitations, nausea, vomiting. Review of Systems Constitutional: No fever, No chills ENT: No hearing loss Respiratory: No cough, No sputum Cardiac: No chest pain, No orthopnea Abdomen: No pain, No nausea Neurologic: No memory loss, No paralysis Psychiatric: No depression symptoms, No anhedonism Skin: No rash, No itch All Other Systems: Reviewed and Negative Medications Current Inpatient Medications Medications (Trade) Dose Ordered Sig/Pankaj Route Start Time Stop Time Status Last Admin Dose Admin Promethazine HCl 12.5 mg/Sodium Chloride 50.5 ml @ 202 mls/hr Q6H PRN IV 09/12/17 15:00 10/12/17 14:59 Ondansetron HCl (Zofran Inj) 4 mg Q6H PRN IV 09/12/17 15:00 10/12/17 14:59 Metoclopramide HCl (Reglan Inj) 10 mg Q6H PRN IV 09/12/17 15:00 10/12/17 14:59 Lorazepam (Ativan Tab) 0.5 mg Q8H PRN PO 09/12/17 15:00 10/12/17 14:59 Lorazepam 0.5 mg/ Syringe 1 ml @ 1 mls/min Q8H PRN IV 09/12/17 15:00 10/12/17 14:59 Pneumococcal Polysaccharide Vaccine 1 ea PRN PRN N/A 09/12/17 15:00 10/12/17 14:59 Polyethylene (Miralax Powder Packet) 17 gm Q6 PO 09/14/17 06:00 10/14/17 05:59 09/14/17 05:30 17 GM Bisacodyl (Dulcolax Supp) 10 mg DAILY PRN DC 09/12/17 15:00 10/12/17 14:59 Magnesium Hydroxide (Milk Of Magnesia Susp) 30 ml DAILY PRN PO 09/12/17 15:00 10/12/17 14:59 Hydromorphone HCl (Dilaudid Inj) 0.5 mg Q3H PRN IV 09/13/17 06:00 09/27/17 05:59 Oxycodone HCl (Roxicodone Immediate Rel Tab) 5-10mg prn moderate to sev... Q4H PRN PO 09/13/17 06:00 09/27/17 05:59 09/14/17 05:30 10 MG Acetaminophen (Tylenol Tab) 1,000 mg Q8H PRN PO 09/12/17 15:00 10/12/17 14:59 Acetaminophen 100 ml @ 400 mls/hr Q8H PRN IV 09/12/17 15:00 10/12/17 14:59 Naloxone HCl (Narcan Inj) 0.1 mg Q5M PRN IV 09/12/17 15:00 10/12/17 14:59 Senna/Docusate Sodium (Senokot S Tab) 2 tab HS PO 09/12/17 21:00 10/12/17 20:59 09/13/17 21:38 2 TAB Sodium Biphosphate/ Sodium Phosphate (Fleet Enema) 132 ml ONE PRN DC 09/12/17 15:00 10/12/17 14:59 Hydroxyzine HCl (Vistaril Tab) 25 mg Q8H PRN PO 09/12/17 15:00 10/12/17 14:59 Al Hydroxide/Mg Hydroxide (Maalox Susp) 30 ml Q6H PRN PO 09/12/17 15:00 10/12/17 14:59 Famotidine (Pepcid Tab) 20 mg Q12 PRN PO 09/12/17 15:00 10/12/17 14:59 Diphenhydramine HCl (Benadryl Cap) 25 mg Q6H PRN PO 09/12/17 15:00 10/12/17 14:59 Aspirin (Ecotrin Tab) 81 mg HS PO 09/12/17 21:00 10/12/17 20:59 09/13/17 21:38 81 MG Atorvastatin Calcium (Lipitor Tab) 20 mg HS PO 09/12/17 21:00 10/12/17 20:59 09/13/17 21:38 20 MG Fenofibrate (Tricor Tab) 48 mg HS PO 09/12/17 21:00 10/12/17 20:59 09/13/17 21:39 48 MG Hydrochlorothiazide (Hydrochlorothiazide Tab) 25 mg QAM PO 09/13/17 09:00 10/13/17 08:59 09/13/17 08:38 25 MG Levothyroxine Sodium (Synthroid Tab) 150 mcg DAILYBB PO 09/13/17 06:00 10/13/17 05:59 09/14/17 05:30 150 MCG Metoprolol Tartrate (Lopressor Tab) 25 mg HS PO 09/12/17 21:00 10/12/17 20:59 09/13/17 22:33 25 MG Paroxetine HCl (pAXil TAB) 40 mg QAM PO 09/13/17 09:00 10/13/17 08:59 09/13/17 08:38 40 MG Hydromorphone HCl (Dilaudid Inj) 1 mg Q3H PRN IV 09/13/17 06:00 09/27/17 05:59 Ketorolac Tromethamine (Toradol Inj) 15 mg Q6H PRN IV. 09/13/17 13:45 09/18/17 13:44 Objective Vital Signs Date Time Temp Pulse Resp B/P (MAP) Pulse Ox O2 Delivery O2 Flow Rate FiO2 09/13/17 08:53 94 Room Air 09/13/17 07:41 36.6 64 18 110/62 (78) 94 Room Air 09/13/17 07:25 Room Air 09/13/17 03:10 36.6 63 18 108/65 (79) 94 Room Air 09/12/17 23:30 Room Air 09/12/17 22:54 36.6 63 18 110/69 (83) 92 Room Air 09/12/17 20:30 75 124/66 (85) 09/12/17 19:22 71 16 124/68 (86) 92 Nasal Cannula 1.0 09/12/17 18:33 37.0 64 17 126/57 (80) 93 Nasal Cannula 2.0 09/12/17 17:17 36.4 63 16 131/66 (87) 97 Nasal Cannula 3.0 09/12/17 16:54 36.5 64 17 112/64 (80) 97 3.0 09/12/17 16:20 100 Nasal Cannula 3.0 09/12/17 16:20 36.7 62 16 107/54 (71) 100 Nasal Cannula 3.0 09/12/17 16:20 100 Nasal Cannula 3.0 09/12/17 16:00 54 16 128/50 98 Nasal Cannula 3 09/12/17 15:50 36.5 55 16 136/54 97 Nasal Cannula 3 09/12/17 15:40 59 16 117/58 95 Oxymask 3 09/12/17 15:30 71 16 140/59 97 Oxymask 5 09/12/17 15:20 74 16 125/64 97 Oxymask 10 09/12/17 15:10 75 16 130/72 96 Oxymask 10 09/12/17 15:04 36.6 84 16 135/70 94 Oxymask 10 Physical Exam General Appearance: WD/WN, no apparent distress Eyes: normal inspection ENT: normal ENT inspection Neck: supple, no adenopathy Respiratory/Chest: chest non-tender, lungs clear, normal breath sounds Cardiovascular: regular rate, rhythm, no edema Abdomen: normal bowel sounds, non tender, soft Neurologic/Psychiatric: alert, oriented x 3 Skin: normal color Lymphatic: no adenopathy Laboratory Results Last 24 Hours Test 09/12/17 16:19 09/13/17 06:01 Hemoglobin 12.0 g/dL 10.5 g/dL Hematocrit 36.4 % 33.3 % White Blood Count 13.14 K/uL Red Blood Count 3.64 M/uL Mean Corpuscular Volume 91.5 fL Mean Corpuscular Hemoglobin 28.8 pg Mean Corpuscular Hemoglobin Concent 31.5 g/dl Platelet Count 245 K/uL Mean Platelet Volume 9.5 fL Neutrophils (%) (Auto) 86.8 % Lymphocytes (%) (Auto) 5.5 % Monocytes (%) (Auto) 7.5 % Eosinophils (%) (Auto) 0.0 % Basophils (%) (Auto) 0.0 % Neutrophils # (Auto) 11.40 K/uL Lymphocytes # (Auto) 0.72 K/uL Monocytes # (Auto) 0.99 K/uL Eosinophils # (Auto) 0.00 K/uL Basophils # (Auto) 0.00 K/uL RDW Standard Deviation 50.4 fL RDW Coefficient of Variation 14.9 % Immature Granulocyte % (Auto) 0.2 % Immature Granulocyte # (Auto) 0.03 K/uL Sodium Level 136 mmol/L Potassium Level 4.3 mmol/L Chloride Level 102 mmol/L Carbon Dioxide Level 31 mmol/L Anion Gap 3.0 mmol/L Blood Urea Nitrogen 26 mg/dl Creatinine 0.98 mg/dl Est Creatinine Clear Calc Drug Dose 66.3 ml/min Estimated GFR () 66.8 Estimated GFR (Non- 57.6 BUN/Creatinine Ratio 26.7 Random Glucose 114 mg/dl Calcium Level 8.3 mg/dl Hepatitis C Antibody Screen NEG Assessment and Plan This patient is a 72-year-old female with a history of hypertension, hypothyroidism, obesity, osteoporosis, GERD, anxiety disorder, hyperlipidemia, and lumbar spinal stenosis, who is here status post L2 to L5 decompression and fusion by Dr. Magallanes. She is doing fairly well postoperatively. L2-L5 decompression and fusion-management postoperatively as per orthopedics -Pain control -SCDs for DVT prophylaxis -Follow postoperative CBC in the morning Acute Blood loss from surgery Hemoglobin dropped from 12 to 10.5 Patient has remained asymptomatic.will recheck in AM [id number] -Continue metoprolol tartrate 25 mg by mouth daily at bedtime -Continue HCTZ -Follow renal function in the morning Hyperlipidemia-stable -Continue fenofibrate, atorvastatin, aspirin 81 mg daily Hypothyroidism-TSH November/2016 normal -Continue home dose of levothyroxine Osteoporosis/vitamin D deficiency-stable, vitamin D level checked last year was 17 -Restart calcium and vitamin D upon discharge Anxiety disorder-stable -Continue Paxil daily GERD-stable, not currently on medications at home Prophylaxis-SCDs Disposition-to home when stable from an orthopedic perspective Full code
[2017-09-13] MEDS ORDERED: RXC5 PO (12:48)
--- NOTE | 2017-09-13 12:49 | Discharge Instructions ---
Discharge Instructions Date of Service Sep 13, 2017. Admission Reason for Admission: Lumbar Spinal Stenosis Discharge Discharge Diagnosis / Problem: lumbar stenosis Discharge Goals Goal(s): Improve function Activity Recommendations Activity Limitations: per Instructions/Follow-up section . Instructions / Follow-Up Instructions / Follow-Up ACTIVITY RECOMMENDATIONS: SELF CARE INSTRUCTIONS AFTER THORACIC/LUMBAR FUSIONS 1. You may walk to your tolerance. It is good exercise for your legs and back. Expect some back and intermittent leg aches and pains. 2. You may perform "counter-top" level activities (make a sandwich, nadia with a project, etc.). 3. No bending or lifting of more than 10 pounds or back twisting of any nature (roll like a log when turning in bed). 4. You may ride in a car for 20-30 minutes at a time. No driving until after your first visit with your doctor. 5. Frequent changes of position and restricting sitting to 30 minutes at a time will help limit the amount of back spasms and stiffness you may experience. 6. You may discontinue the use of ambulatory aids (cane, crutches, etc.) once your strength and confidence allow. 7. You may auto air conditioning installer the shower and let water strike your incision when you arrive home at least once daily. Do not take a tub bath, sit in a hot tub or go into a swimming pool until after your first recheck in the office. SPECIAL CARE INSTRUCTIONS: VERY IMPORTANT TO READ AND REVIEW A. Your surgical incision has been closed with a cosmetic suture under the skin that will dissolve in about 6 weeks. In 14 days, you can use a pair of clean scissors and cut the suture that is left outside of the skin at the ends of your incision. 1. The small skin tapes can be removed 7 days after surgery if they have not fallen off by that point. 2. You may keep the wound open to air as much as possible to promote healing after post-op day number 5 unless told otherwise by your doctor. 3. If you think the wound looks like it is becoming infected (redness or worsening drainage) and/or you are experiencing fever, chill or worsening back pain and muscle spasms, contact the office so that we may evaluate you as soon as possible. B. Complications are uncommon, but please contact us if you have any signs or symptoms of: 1. wound infection (fever higher than 102.5 degrees F, redness, separation of wound, drainage, or increasing pain from the incision) 2. blood clots in legs (pain, swelling, redness and warmth in legs) 3. urinary tract infection (fever higher than 102.5 degrees F, burning upon urination or increased frequency of urination) 4. nerve problems (inability to walk on your toes or heels, numbness, loss of bowel or bladder control) 5. any other symptoms that concern you C. Please call the office at if you have any concerns or questions about your operation or recovery. D. No smoking! Smoking drastically decreases the chance of a solid fusion. E. Do not take any anti-inflammatory medications (Indocin, Advil, Motrin, Aspirin, Naprosyn, etc.) as these may inhibit the chance of a solid fusion. Tylenol is okay to take for pain. MANAGING PAIN AFTER SPINAL SURGERY 1. Narcotic medication is intended for short-term use and will be provided for surgical pain. Surgical pain usually lasts for a period of 4-6 weeks. Narcotic medication includes Percocet, Vicodin, Darvocet, Tylenol #3 or Lortab. 2. Longer-term pain is more appropriately treated with non-narcotic medication such as Tylenol ES. 3. Muscle spasm is not appropriately treated with narcotics. Muscle relaxers such as Soma, Flexeril or Skelaxin can be used along with Tylenol ES. 4. Remember that we all live with some "aches and pains". This is not unusual or uncommon after an injury or as we get older. a. Back pain is expected and may include muscle spasms for 4 to 6 weeks after surgery. The pain should gradually improve. If the pain worsens for no apparent reason, please contact the office. b. Intermittent leg pain may also be experienced and should not be concerned about unless it worsens for no apparent reason. If so, please contact the office. 5. We will provide appropriate medication within the normal guidelines of their prescribed use. We will also be very cautious and aware of potential abuse and extended duration of patients' medication needs. a. Pain medications are for your comfort and to assist with sleep and rest so that the tissue can heal. They are not provided in order to return to normal activity and should not be used through the day. To do so or worsening pain at night can result from ongoing tissue damage and development of tolerance to the prescribed medicine. 6. Please allow 2-3 days to process refills. Prescriptions will not be mailed but must be picked up at the office. FOLLOW UP VISIT: Keep your scheduled follow-up appointment. Any questions, please call the office at . Current Hospital Diet Patient's current hospital diet: Regular Diet Discharge Diet Recommended Diet: Regular Diet Procedures Procedures Performed: To 3 L3 4 for 5. #2 posterior spinal fusion L2 3 L3 4 L4 5 L5-S1. #3 posterior segmental S rotation L2 3 L3 4 L4 5 L5-S1. #4 placement locally harvested morcellized autograft posterior gutters. #5 placement infuse collagen sponge by mask graft in the posterior lateral gutters. Pending Studies Studies pending at discharge: no Medical Emergencies . Who to Call and When: Medical Emergencies: If at any time you feel your situation is an emergency, please call 911 immediately. . Non-Emergent Contact Non-Emergency issues call your: Primary Care Provider . "Provider Documentation" section prepared by Олег Magallanes. . VTE Core Measure Inpt VTE Proph given/why not?: Inez Howard, SCD's
--- NOTE | 2017-09-13 13:38 | Progress Note ---
Progress Note Date of Service Sep 13, 2017. Progress Note Patient is postop day #1. Back pain is controlled. Leg pain improved. On exam she is sitting up in bed comfortably. Has good strength testing. Assessment status post lumbar decompression and fusion. Plan this time will begin physical therapy advance her bowel regimen and anticipate possible discharge in the week to rehabilitation.
[2017-09-13] MEDS ORDERED: KETOROLAC TROMETHAMINE 15 MG/ML VIAL IV. PRN (13:45)
--- NOTE | 2017-09-13 17:31 | Progress Note ---
Subjective Date of Service: Sep 13, 2017. Objective Vital Signs Date Time Temp Pulse Resp B/P (MAP) Pulse Ox O2 Delivery O2 Flow Rate FiO2 09/13/17 15:38 36.8 60 16 138/72 (94) 97 Room Air 09/13/17 12:38 36.5 64 18 120/82 (95) 97 Room Air 09/13/17 08:53 94 Room Air 09/13/17 07:41 36.6 64 18 110/62 (78) 94 Room Air 09/13/17 07:25 Room Air 09/13/17 03:10 36.6 63 18 108/65 (79) 94 Room Air 09/12/17 23:30 Room Air 09/12/17 22:54 36.6 63 18 110/69 (83) 92 Room Air 09/12/17 20:30 75 124/66 (85) 09/12/17 19:22 71 16 124/68 (86) 92 Nasal Cannula 1.0 09/12/17 18:33 37.0 64 17 126/57 (80) 93 Nasal Cannula 2.0 Laboratory Results Last 24 Hours Test 09/13/17 06:01 White Blood Count 13.14 K/uL Red Blood Count 3.64 M/uL Hemoglobin 10.5 g/dL Hematocrit 33.3 % Mean Corpuscular Volume 91.5 fL Mean Corpuscular Hemoglobin 28.8 pg Mean Corpuscular Hemoglobin Concent 31.5 g/dl Platelet Count 245 K/uL Mean Platelet Volume 9.5 fL Neutrophils (%) (Auto) 86.8 % Lymphocytes (%) (Auto) 5.5 % Monocytes (%) (Auto) 7.5 % Eosinophils (%) (Auto) 0.0 % Basophils (%) (Auto) 0.0 % Neutrophils # (Auto) 11.40 K/uL Lymphocytes # (Auto) 0.72 K/uL Monocytes # (Auto) 0.99 K/uL Eosinophils # (Auto) 0.00 K/uL Basophils # (Auto) 0.00 K/uL RDW Standard Deviation 50.4 fL RDW Coefficient of Variation 14.9 % Immature Granulocyte % (Auto) 0.2 % Immature Granulocyte # (Auto) 0.03 K/uL Sodium Level 136 mmol/L Potassium Level 4.3 mmol/L Chloride Level 102 mmol/L Carbon Dioxide Level 31 mmol/L Anion Gap 3.0 mmol/L Blood Urea Nitrogen 26 mg/dl Creatinine 0.98 mg/dl Est Creatinine Clear Calc Drug Dose 66.3 ml/min Estimated GFR () 66.8 Estimated GFR (Non- 57.6 BUN/Creatinine Ratio 26.7 Random Glucose 114 mg/dl Calcium Level 8.3 mg/dl Hepatitis C Antibody Screen NEG
[2017-09-13] MEDS: DOCUSATE SODIUM/SENNA 50/8.6MG TAB PO SCH (21:38)
[2017-09-13] MEDS: ASPIRIN 81 MG ECTAB PO SCH (21:38)
[2017-09-13] MEDS: ATORVASTATIN 20 MG TAB PO SCH (21:38)
[2017-09-13] MEDS: FENOFIBRATE 48 MG TAB PO SCH (21:39)
[2017-09-13] MEDS: METOPROLOL TARTRATE 25 MG TAB PO SCH (22:33)
[2017-09-14] MEDS: POLYETHYLENE (MIRALAX) 17 GM PACK PO SCH ×3 (05:30→18:00)
[2017-09-14] MEDS: OXYCODONE HCL IR 5 MG TAB (IMMEDIATE RELEASE) PO PRN ×4 (05:30→20:14)
[2017-09-14] MEDS: LEVOTHYROXINE 150 MCG TAB PO SCH (05:30)
[2017-09-14 07:21] VITALS: BP 127/64; PULSE 70; TEMP 37.3; O2SAT 91
--- NOTE | 2017-09-14 08:46 | Progress Note ---
Progress Note Date of Service Sep 14, 2017. Progress Note Pins controlled. Leg pain improved. TANESHA drain decreasing appropriately. Assessment status post lumbar decompression fusion. Planta's time will continue physical therapy anticipate possible rehabilitation tomorrow.
[2017-09-14] MEDS: PAROXETINE 20 MG TAB PO SCH (09:06)
[2017-09-14] MEDS: HYDROCHLOROTHIAZIDE 25 MG TAB PO SCH (09:06)
[2017-09-14 09:43] LABS: BASO % 0.2 %; BASO ABS # 0.02 K/uL (0-0.2); EOS % 0.6 %; EOS ABS # 0.06 K/uL (0-0.5); HEMATOCRIT 31.1 % (37-47); HEMOGLOBIN 10.2 g/dL (12.0-16.0); IG# 0.02 K/uL (0.00-0.02); LYMPH % 8.7 %; MEAN CELL VOLUME 91.2 fL (80-100); MEAN CORPUSCULAR HEMOGLOBIN 29.9 pg (25-34); MEAN CORPUSCULAR HGB CONC 32.8 g/dl (32-36); MEAN PLATELET VOLUME 9.4 fL (7.4-10.4); MONO % 9.5 %; MONO ABS # 0.98 K/uL (0.11-0.59); NEUT % 80.8 %; NEUT ABS # 8.39 K/uL (1.4-6.5); PLATELET COUNT 209 K/uL (130-400); RED CELL DISTRIBUTION WIDTH CV 15.1 % (11.5-14.5); RED CELL DISTRIBUTION WIDTH SD 50.7 fL (36.4-46.3); WHITE BLOOD COUNT 10.37 K/uL (4.8-10.8)
[2017-09-14 10:12] LABS: CREATININE 0.85 mg/dl (0.60-1.20)
[2017-09-14 15:11] VITALS: BP 105/64; PULSE 64; TEMP 36.9; O2SAT 93
--- NOTE | 2017-09-14 17:15 | Progress Note ---
Subjective Date of Service: Sep 14, 2017. Subjective Pt evaluation today including: conversation w/ patient Problem List Patient reports feeling well. Patient denies any complaints today except for pain in her back. Patient denies any palpations, nausea, vomiting, chest pain, dizziness. Review of Systems Constitutional: No fever, No chills ENT: No hearing loss Respiratory: No cough, No sputum Cardiac: No chest pain Abdomen: No pain Neurologic: No memory loss Psychiatric: + depression symptoms Heme: No abnormal bleeding/bruising Endo: No fatigue All Other Systems: Reviewed and Negative Medications Current Inpatient Medications Medications (Trade) Dose Ordered Sig/Pankaj Route Start Time Stop Time Status Last Admin Dose Admin Promethazine HCl 12.5 mg/Sodium Chloride 50.5 ml @ 202 mls/hr Q6H PRN IV 09/12/17 15:00 10/12/17 14:59 Ondansetron HCl (Zofran Inj) 4 mg Q6H PRN IV 09/12/17 15:00 10/12/17 14:59 Metoclopramide HCl (Reglan Inj) 10 mg Q6H PRN IV 09/12/17 15:00 10/12/17 14:59 Lorazepam (Ativan Tab) 0.5 mg Q8H PRN PO 09/12/17 15:00 10/12/17 14:59 Lorazepam 0.5 mg/ Syringe 1 ml @ 1 mls/min Q8H PRN IV 09/12/17 15:00 10/12/17 14:59 Pneumococcal Polysaccharide Vaccine 1 ea PRN PRN N/A 09/12/17 15:00 10/12/17 14:59 Polyethylene (Miralax Powder Packet) 17 gm Q6 PO 09/14/17 06:00 10/14/17 05:59 09/14/17 12:13 17 GM Bisacodyl (Dulcolax Supp) 10 mg DAILY PRN DC 09/12/17 15:00 10/12/17 14:59 Magnesium Hydroxide (Milk Of Magnesia Susp) 30 ml DAILY PRN PO 09/12/17 15:00 10/12/17 14:59 Hydromorphone HCl (Dilaudid Inj) 0.5 mg Q3H PRN IV 09/13/17 06:00 09/27/17 05:59 Oxycodone HCl (Roxicodone Immediate Rel Tab) 5-10mg prn moderate to sev... Q4H PRN PO 09/13/17 06:00 09/27/17 05:59 09/14/17 20:14 10 MG Acetaminophen (Tylenol Tab) 1,000 mg Q8H PRN PO 09/12/17 15:00 10/12/17 14:59 Acetaminophen 100 ml @ 400 mls/hr Q8H PRN IV 09/12/17 15:00 10/12/17 14:59 Naloxone HCl (Narcan Inj) 0.1 mg Q5M PRN IV 09/12/17 15:00 10/12/17 14:59 Senna/Docusate Sodium (Senokot S Tab) 2 tab HS PO 09/12/17 21:00 10/12/17 20:59 09/14/17 20:21 2 TAB Sodium Biphosphate/ Sodium Phosphate (Fleet Enema) 132 ml ONE PRN DC 09/12/17 15:00 10/12/17 14:59 Hydroxyzine HCl (Vistaril Tab) 25 mg Q8H PRN PO 09/12/17 15:00 10/12/17 14:59 Al Hydroxide/Mg Hydroxide (Maalox Susp) 30 ml Q6H PRN PO 09/12/17 15:00 10/12/17 14:59 Famotidine (Pepcid Tab) 20 mg Q12 PRN PO 09/12/17 15:00 10/12/17 14:59 Diphenhydramine HCl (Benadryl Cap) 25 mg Q6H PRN PO 09/12/17 15:00 10/12/17 14:59 Aspirin (Ecotrin Tab) 81 mg HS PO 09/12/17 21:00 10/12/17 20:59 09/14/17 20:21 81 MG Atorvastatin Calcium (Lipitor Tab) 20 mg HS PO 09/12/17 21:00 10/12/17 20:59 09/14/17 20:21 20 MG Fenofibrate (Tricor Tab) 48 mg HS PO 09/12/17 21:00 10/12/17 20:59 09/14/17 20:21 48 MG Hydrochlorothiazide (Hydrochlorothiazide Tab) 25 mg QAM PO 09/13/17 09:00 10/13/17 08:59 09/14/17 09:06 25 MG Levothyroxine Sodium (Synthroid Tab) 150 mcg DAILYBB PO 09/13/17 06:00 10/13/17 05:59 09/14/17 05:30 150 MCG Metoprolol Tartrate (Lopressor Tab) 25 mg HS PO 09/12/17 21:00 10/12/17 20:59 09/14/17 20:21 25 MG Paroxetine HCl (pAXil TAB) 40 mg QAM PO 09/13/17 09:00 10/13/17 08:59 09/14/17 09:06 40 MG Hydromorphone HCl (Dilaudid Inj) 1 mg Q3H PRN IV 09/13/17 06:00 09/27/17 05:59 Ketorolac Tromethamine (Toradol Inj) 15 mg Q6H PRN IV. 09/13/17 13:45 09/18/17 13:44 09/14/17 09:13 15 MG Objective Vital Signs Date Time Temp Pulse Resp B/P (MAP) Pulse Ox O2 Delivery O2 Flow Rate FiO2 09/14/17 15:55 Room Air 09/14/17 15:11 36.9 64 18 105/64 (78) 93 Room Air 09/14/17 07:50 Room Air 09/14/17 07:21 37.3 70 18 127/64 (85) 91 Room Air 09/13/17 23:45 Room Air 09/13/17 22:49 37.2 70 18 118/67 (84) 93 Room Air 09/13/17 21:41 68 129/73 (91) Physical Exam Comments: General Appearance: WD/WN, no apparent distress Eyes: normal inspection ENT: normal ENT inspection Neck: supple, no adenopathy Respiratory/Chest: chest non-tender, lungs clear, normal breath sounds Cardiovascular: regular rate, rhythm, no edema Abdomen: normal bowel sounds, non tender, soft Neurologic/Psychiatric: alert, oriented x 3 Skin: normal color Lymphatic: no adenopathy Laboratory Results Last 24 Hours Test 09/14/17 09:17 White Blood Count 10.37 K/uL Red Blood Count 3.41 M/uL Hemoglobin 10.2 g/dL Hematocrit 31.1 % Mean Corpuscular Volume 91.2 fL Mean Corpuscular Hemoglobin 29.9 pg Mean Corpuscular Hemoglobin Concent 32.8 g/dl Platelet Count 209 K/uL Mean Platelet Volume 9.4 fL Neutrophils (%) (Auto) 80.8 % Lymphocytes (%) (Auto) 8.7 % Monocytes (%) (Auto) 9.5 % Eosinophils (%) (Auto) 0.6 % Basophils (%) (Auto) 0.2 % Neutrophils # (Auto) 8.39 K/uL Lymphocytes # (Auto) 0.90 K/uL Monocytes # (Auto) 0.98 K/uL Eosinophils # (Auto) 0.06 K/uL Basophils # (Auto) 0.02 K/uL RDW Standard Deviation 50.7 fL RDW Coefficient of Variation 15.1 % Immature Granulocyte % (Auto) 0.2 % Immature Granulocyte # (Auto) 0.02 K/uL Creatinine 0.85 mg/dl Est Creatinine Clear Calc Drug Dose 76.4 ml/min Estimated GFR () 79.3 Estimated GFR (Non- 68.5 Assessment and Plan This patient is a 72-year-old female with a history of hypertension, hypothyroidism, obesity, osteoporosis, GERD, anxiety disorder, hyperlipidemia, and lumbar spinal stenosis, who is here status post L2 to L5 decompression and fusion by Dr. Magallanes. She is doing fairly well postoperatively. L2-L5 decompression and fusion-management postoperatively as per orthopedics -Pain control -SCDs for DVT prophylaxis -Follow postoperative CBC in the morning Acute Blood loss from surgery Hemoglobin had dropped from 12 to 10.5 Patient has remained asymptomatic. Hemoglobin today however remained stable. [id number] -Continue metoprolol tartrate 25 mg by mouth daily at bedtime -Continue HCTZ -Rnal function is stable Hyperlipidemia-stable -Continue fenofibrate, atorvastatin, aspirin 81 mg daily -explained to patient that she should discuss with pcp as to why she is on both fenofibrate and atorvastatin. Hypothyroidism-TSH November/2016 normal -Continue home dose of levothyroxine Osteoporosis/vitamin D deficiency-stable, vitamin D level checked last year was 17 -Restart calcium and vitamin D upon discharge Anxiety disorder-stable -Continue Paxil daily GERD-stable, not currently on medications at home Prophylaxis-SCDs Disposition-to home when stable from an orthopedic perspective Full code Will sign off case. Thank you for allowing me ton participate on the care of this patient.
[2017-09-14 20:19] VITALS: BP 136/70; PULSE 70
[2017-09-14] MEDS: METOPROLOL TARTRATE 25 MG TAB PO SCH (20:21)
[2017-09-14] MEDS: ATORVASTATIN 20 MG TAB PO SCH (20:21)
[2017-09-14] MEDS: ASPIRIN 81 MG ECTAB PO SCH (20:21)
[2017-09-14] MEDS: FENOFIBRATE 48 MG TAB PO SCH (20:21)
[2017-09-14] MEDS: DOCUSATE SODIUM/SENNA 50/8.6MG TAB PO SCH (20:21)
[2017-09-14 22:55] VITALS: BP 121/71; PULSE 65; TEMP 36.5; O2SAT 94
[2017-09-14] MEDS ORDERED: NURSING VERBAL MED ORDER ONE (23:45)
[2017-09-15] MEDS: LEVOTHYROXINE 150 MCG TAB PO SCH (05:49)
[2017-09-15] MEDS: OXYCODONE HCL IR 5 MG TAB (IMMEDIATE RELEASE) PO PRN ×4 (05:50→20:35)
[2017-09-15 07:50] VITALS: BP 128/75; PULSE 66; TEMP 36.7; O2SAT 93
[2017-09-15] MEDS: HYDROCHLOROTHIAZIDE 25 MG TAB PO SCH (09:25)
[2017-09-15] MEDS: PAROXETINE 20 MG TAB PO SCH (09:25)
--- NOTE | 2017-09-15 14:25 | Progress Note ---
Progress Note Date of Service Sep 15, 2017. Progress Note Patient's back pain is well-controlled today. Leg pain improved. Vital signs stable. On exam she isn't sure at bedside appears comfortable. She has good strength testing. Her TANESHA drains decreasing appropriately. Anticipate discharge to half-way Monday.
[2017-09-15 14:59] VITALS: BP 128/73; PULSE 79; TEMP 36.8; O2SAT 92
[2017-09-15 21:22] VITALS: BP 135/74; PULSE 73
[2017-09-15] MEDS: ASPIRIN 81 MG ECTAB PO SCH (21:22)
[2017-09-15] MEDS: METOPROLOL TARTRATE 25 MG TAB PO SCH (21:23)
[2017-09-15] MEDS: FENOFIBRATE 48 MG TAB PO SCH (21:23)
[2017-09-15] MEDS: ATORVASTATIN 20 MG TAB PO SCH (21:23)
[2017-09-15] MEDS: DOCUSATE SODIUM/SENNA 50/8.6MG TAB PO SCH (21:23)
[2017-09-15 23:20] VITALS: BP 120/75; PULSE 65; TEMP 37; O2SAT 93
[2017-09-16] MEDS: OXYCODONE HCL IR 5 MG TAB (IMMEDIATE RELEASE) PO PRN ×2 (05:48→10:12)
[2017-09-16] MEDS: LEVOTHYROXINE 150 MCG TAB PO SCH (06:24)
[2017-09-16 07:46] VITALS: BP 139/83; PULSE 62; TEMP 36.9; O2SAT 91
[2017-09-16] MEDS: HYDROCHLOROTHIAZIDE 25 MG TAB PO SCH (08:18)
[2017-09-16] MEDS: PAROXETINE 20 MG TAB PO SCH (08:18)
[2017-09-16 10:00] VITALS: O2SAT 93
--- NOTE | 2017-09-16 10:21 | Discharge Summary ---
Orthopedic Discharge Summary Admission Date/Reason Sep 12, 2017 at 10:30 Lumbar Spinal Stenosis. Discharge Date/Disposition [facility], 2017 [facility] Diagnosis Principal Diagnosis: Lumbar spinal stenosis Admission Physical Exam As per Admitting History & Physical. Hospital Course Patient underwent lumbar decompression and fusion tolerated this well as taken to the orthopedic floor postoperatively. Postoperative day #1 she was and ambulatory progressed nicely through postoperative day #2. Postoperative day # 3 TANESHA drain decreased appropriately pain well controlled subsequently discharged home. Discharge orders and instructions found on the chart for further review. Discharge Instructions Please refer to the electronic Patient Visit Report (Discharge Instructions) for additional information.
[2017-09-16 11:06] VITALS: BP 139/83; PULSE 62; TEMP 36.9; O2SAT 91
== END 2017-09-16 15:10 | DRG 460 ==
LOC: C.ACU 09:18 → C.3E 10:30 → ENRESERV 15:56
PROVIDERS: ADMIT Orthopaedic Surgery Orthopaedic Surgery of the Spine; ATTEND Orthopaedic Surgery Orthopaedic Surgery of the Spine
PROC: 0SG1071 Fusion of 2 or more Lumbar Vertebral Joints with Autologous Tissue Substitute, Posterior Approach, Posterior Column, Open Approach (ICD-10-PCS; principal; 2017-09-12 11:00)
PROC: 0SG3071 Fusion of Lumbosacral Joint with Autologous Tissue Substitute, Posterior Approach, Posterior Column, Open Approach (ICD-10-PCS; principal; 2017-09-12 11:00)
DX: M48.061 Spinal stenosis, lumbar region without neurogenic claudication (principal); Z68.43 Body mass index [BMI] 50.0-59.9, adult; M43.16 Spondylolisthesis, lumbar region; I10 Essential (primary) hypertension; E03.9 Hypothyroidism, unspecified; E78.5 Hyperlipidemia, unspecified; M81.0 Age-related osteoporosis without current pathological fracture; E55.9 Vitamin D deficiency, unspecified; F41.9 Anxiety disorder, unspecified; E66.01 Morbid (severe) obesity due to excess calories; Z79.899 Other long term (current) drug therapy; Z79.82 Long term (current) use of aspirin

== ENCOUNTER → 2017-09-26 | Outpatient (CLI) | payer BC ==
[~2017-09-26] MED LIST changes: -CEFAZOLIN 3000MG IV PUSH 15 ML IV SCH; -CEFAZOLIN IV 3,000 MG in SYRINGE 0 ML IV SCH; +CEPH500C2 PO; -CIPR1TAB11 PO; -LACTATED RINGER'S 1000ML 1,000 ML IV SCH; +RXC5 PO
== END ==
LOC: C.LABCC 17:36
PROVIDERS: ATTEND Internal Medicine
DX: T81.30XA Disruption of wound, unspecified, initial encounter (principal)

== ENCOUNTER → 2017-10-24 | Outpatient (CLI) | payer BC ==
[~2017-10-24] MED LIST changes: -CEPH500C2 PO
--- NOTE | 2017-10-25 15:53 | MAMMOGRAPHY REPORT ---
BILATERAL DIGITAL SCREENING MAMMOGRAM TOMOSYNTHESIS WITH CAD: 10/24/2017 CLINICAL HISTORY: Routine screening. Patient has no complaints. TECHNIQUE: Breast tomosynthesis in addition to standard 2D mammography was performed. Current study was also evaluated with a Computer Aided Detection (CAD) system. COMPARISON: Comparison is made to exams dated: 09/08/2016 mammogram, 09/07/2015 mammogram, 09/04/2014 ma mmogram, 09/03/2013 mammogram, 08/20/2012 mammogram, and 08/19/2011 mammogram - [facility]. BREAST COMPOSITION: The tissue of both breasts is almost entirely fatty. FINDINGS: There are scattered benign-appearing round and punctate microcalcifications. A 6 mm focal asymmetry in the upper outer quadrant of the right breast is stable on prior mammograms dating back t o at least 07/23/2010, therefore likely benign. No suspicious mass, architectural distortion or clus ter of microcalcifications is seen. IMPRESSION: ACR BI-RADS CATEGORY 1: NEGATIVE There is no mammographic evidence of malignancy. A 1 year screening mammogram is recommended. The pa tient will receive written notification of the results. Approximately 10% of breast cancers are not detected with mammography. A negative mammographic report should not delay biopsy if a clinically suggestive mass is present. Maxine Castillo M.D. ay/:10/24/2017 15:15:44 Swing Ride Operator: Karen NEWMAN)(Rebekah), [facility] letter sent: Normal 1/2 BI-RADS Code: ACR BI-RADS Category 1: Negative
== END | disposition home or self-care (01) ==
LOC: C.MAMM 11:09
PROVIDERS: ATTEND Internal Medicine
DX: Z12.31 Encounter for screening mammogram for malignant neoplasm of breast (principal)

== ENCOUNTER → 2018-01-02 | Outpatient (CLI) | payer BC ==
[2018-01-02 12:29] LABS: BASO % 0.6 %; BASO ABS # 0.04 K/uL (0-0.2); EOS % 1.7 %; EOS ABS # 0.11 K/uL (0-0.5); HEMOGLOBIN 13.6 g/dL (12.0-16.0); IG# 0.03 K/uL (0.00-0.02); LYMPH % 21.8 %; LYMPH ABS # 1.44 K/uL (1.2-3.4); MEAN CELL VOLUME 88.3 fL (80-100); MEAN CORPUSCULAR HEMOGLOBIN 27.9 pg (25-34); MEAN CORPUSCULAR HGB CONC 31.6 g/dl (32-36); MEAN PLATELET VOLUME 9.6 fL (7.4-10.4); MONO % 9.1 %; NEUT % 66.3 %; PLATELET COUNT 291 K/uL (130-400); RED CELL DISTRIBUTION WIDTH CV 16.6 % (11.5-14.5); RED CELL DISTRIBUTION WIDTH SD 52.9 fL (36.4-46.3); WHITE BLOOD COUNT 6.62 K/uL (4.8-10.8)
[2018-01-02 12:54] LABS: ALBUMIN 3.6 gm/dl (3.4-5.0); ALT/SGPT 28 U/L (12-78); BLOOD UREA NITROGEN 33 mg/dl (7-18); CALCIUM 9.5 mg/dl (8.5-10.1); CARBON DIOXIDE 34 mmol/L (21-32); CHOLESTEROL 174 mg/dl (0-200); CREATININE 0.87 mg/dl (0.60-1.20); GLUCOSE 83 mg/dl (70-99); POTASSIUM 4.2 mmol/L (3.5-5.1); SODIUM 139 mmol/L (136-145)
[2018-01-02 13:05] LABS: ALKALINE PHOSPHATASE 76 U/L (45-117); AST/SGOT 16 U/L (15-37); LDL CHOLESTEROL CALCULATED 76 mg/dl; TOTAL PROTEIN 7.3 gm/dl (6.4-8.2)
== END | disposition home or self-care (01) ==
LOC: C.LABBFT 10:28
PROVIDERS: ATTEND Internal Medicine
DX: E78.00 Pure hypercholesterolemia, unspecified (principal); E03.9 Hypothyroidism, unspecified; E55.9 Vitamin D deficiency, unspecified; I10 Essential (primary) hypertension

== ENCOUNTER 2022-06-25 19:05 | Inpatient (IN) ==
--- NOTE | 2022-06-25 20:13 | Emergency Department Note ---
Impression & Plan AMS (altered mental status), Acute UTI (urinary tract infection), Elevated troponin, Elevated procalcitonin ED Provider Note INFORMANT: Patient, EMS and friend ED PROVIDER(S): Ham Gibbs MD CHIEF COMPLAINT: Urinary symptoms PLAN: Disposition: Admitted Condition: Good Outpatient prescription management: none Referral: None MEDICAL DECISION MAKING: Patient presented because of urinary symptoms and change in mental status. Work-up was initiated. She received a liter of fluids prehospital. The patient had a nonspecific ST on ECG. She was in a sinus rhythm. The patient's head CT was negative. Chest x-ray did not reveal any obvious infiltrate. Her CBC was unremarkable. Chemistry panel revealed hypokalemia and hypomagnesemia. Both the potassium and magnesium were repleted. Patient was given IV cefepime. Urinalysis was concerning for infection. Patient had blood cultures performed. Lactate was negative however procalcitonin was moderately elevated concerning fo r bacterial infection. Patient was hydrated with additional saline. On reassessment she was doing better. She will need further management in the hospital. Patient was in agreement. Consultation was made with Dr. Horace Ocampo of the [facility] service. Patient was evaluated in the ER for further management. Triage Nursing notes reviewed and agree them. Vital Signs: reviewed and remarkable for mild hypoxia Differential diagnosis: Infection, dehydration, metabolic abnormality, hypo/hyperglycemia, electrolyte disturbance, anemia, hypoxia, cardiac sources, intracerebral event, toxicologic, neurologic, as well as other pathologies. Diagnostics interpreted by me: ECG: Twelve-lead ECG reveals a sinus rhythm with premature supraventricular contractions at [address] No [address] elevation or depression. Cardiac Monitoring: Cardiac monitoring ordered by me: The patient was placed on continuous cardiac monitoring and observed. It revealed a normal sinus rhythm 70 bpm Imaging studies: Head CT: A noncontrast CT scan of the head was performed and was negative for tumor, fracture, intracranial hemorrhage, or other acute pathology. Chest x-ray. Findings: A chest x-ray was performed and revealed no pneumothorax, effusion, infiltrate, pulmonary edema, free air under the diaphragm, or wide mediastinum. Impression: No acute disease. HPI: The patient is a 77year old female who presents to the Emergency Room with complaints of urinary symptoms. This started last week and is worsening. The patient also notes the following associated symptoms, generalized weakness. Per EMS patient was in a recliner last night and friends noted that when they left her at midnight and then presented back today she was in the same position, almost for 24 hours. She was incontinent and confused. Patient was being treated for a UTI with oral antibiotics. Current pain is rated as 0/10. Patient denies any headache, chest pain or abdominal pain. No back pain. No trauma reported. History is limited secondary to change in mental status. ROS: See above HPI for pertinent positives & negatives. Limited secondary to mental status. PAST MEDICAL HISTORY:See Below , UTI, CKD PAST SURGICAL HISTORY:See Below, FAMILY HISTORY:See Below SOCIAL HISTORY:See Below, retired HOME MEDICATIONS:See Below ALLERGIES:See Below VITALS:See Below PHYSICAL EXAMINATION: GENERAL: Awake, mildly confused but nontoxic-appearing, in no distress HENT: Normocephalic, atraumatic. Oropharynx unremarkable. EYES: Normal conjunctiva. Sclera non-icteric. NECK: Inspection normal. Non-tender. Supple. No nuchal rigidity. FROM. No masses. RESPIRATORY: Clear to auscultation. No wheezes. No rales. Increased respiratory effort. CARDIAC: Normal rate. Normal rhythm. No murmurs. No rubs. Extremities warm and well perfused. Pulses equal. No JVD. GI: Soft, non-distended. No tenderness to palpation. No rebound or guarding. No masses. RECTAL: Deferred. MUSCULOSKELETAL: Atraumatic. Chest examination reveals no tenderness. The back is symmetrical on inspection without obvious abnormality. There is no CVA tenderness to palpation. No joint edema. LOWER EXTREMITIES: Calves are equal size bilaterally and non-tender. 1+ edema. No discoloration. NEURO: Normal sensorium. No sensory or motor deficits noted. SKIN: No rash or jaundice noted. Ham Gibbs MD Past Med/Surg History Medical History (Updated 06/26/22 @ 00:21 by Ham Gibbs MD) Acid reflux controlled Anxiety and depression Atrial septal aneurysm PCP monitoring, noted per 2010 ECHO but no evidence on more recent 09/2018 ECHO BMI 50.0-59.9, adult Hx of bladder infections recurrent/no recent issues Hyperlipidemia Hypertension Hypothyroidism Mixed stress and urge urinary incontinence + botox injections q6 months Morbid obesity PNA (pneumonia) (12/26/13) Reactive airway disease per records Sleep apnea Moderate sleep apnea/hypopnea with nocturnal hypoxemia per 01/15/19 sleep study- on CPAP Spinal stenosis Surgical History History of appendectomy History of cataract surgery (~2018) RT AND LEFT History of colonoscopy (~2011) History of lumbar fusion (~08/2017) History of total bilateral knee replacement History of total right hip arthroplasty Hx of cervical spine surgery (~09/2018) C4 corpectomy, ACDF C3-C6 fusion: 10/17/18: Grade view 1, MAC#3, ETT 7.5 at [facility] Family History Mother , age 49 Intestinal disorder Father , age 93 Congestive heart failure Social History Smoking Status: Never smoker Second Hand Exposure: No; Hx Alcohol Use: No Hx Substance Use: No Preferred Language: Thai Communication Ability: Effective Visual Impairment: No Limitations Hearing Ability: Normal Machine Filler Required: No Beliefs That Will Affect Care: None marital status: Current Living Situation: Spouse current occupational status: employed current occupation: transit bus operator other: 1 son, in [place] Feels Safe at Home: Yes Dental Care, Regularly: No Physical Activity Frequency: Does not Exercise Seatbelt Use: always Assistive Devices: Glasses Allergies Allergies Allergy/AdvReac Type Severity Reaction Status Date / Time No Known Allergies Allergy Mild Verified 06/25/22 21:59 Home Meds Home Medications Medication Instructions Recorded Confirmed multivitamin-ferrous 1 tab PO QPM 04/22/19 06/25/22 fumarate-folic acid 18 mg-400 mcg tablet (Centrum Complete) cyanocobalamin (vitamin B-12) 1,000 mcg PO QPM 09/16/19 06/25/22 1,000 mcg capsule ascorbic acid (vitamin C) 500 mg 500 mg PO BID 09/24/20 06/25/22 tablet cholecalciferol (vitamin D3) 25 1,000 unit PO HS 09/24/20 06/25/22 mcg (1,000 unit) capsule (Vitamin D3) amoxicillin 500 mg capsule 2,000 mg PO DIRECTED PRN PRIOR 06/25/22 06/25/22 TO DENTAL APPT. aspirin 81 mg tablet,delayed 81 mg PO DAILY 06/25/22 06/25/22 release cephalexin 500 mg capsule 500 mg PO DAILY 06/25/22 06/25/22 dulaglutide 3 mg/0.5 mL 1 mg subcut WK 06/25/22 06/25/22 subcutaneous pen injector (Trulicity) furosemide 40 mg tablet 40 mg PO DAILY 06/25/22 06/25/22 levothyroxine 100 mcg tablet 100 mcg PO DAILY 06/25/22 06/25/22 Previous Rx's Medication Instructions Recorded albuterol sulfate 90 mcg/actuation 1 inha inhalation Q6H PRN 10/24/18 aerosol inhaler shortness of breath #6.7 grams atorvastatin 20 mg tablet (Lipitor) 20 mg PO QPM #90 tabs 07/12/21 metoprolol tartrate 25 mg tablet 25 mg PO QAM #90 tabs 08/23/21 fenofibrate nanocrystallized 48 mg 48 mg PO QPM #90 tabs 12/21/21 tablet (Tricor) paroxetine HCl 40 mg tablet (Paxil) 40 mg PO QAM #90 tabs 01/11/22 Results & Data (ED) Vital Signs Vital Signs - 24 hr 06/25/22 19:18 06/25/22 19:31 06/25/22 19:30 Temperature 37.5 C 37.5 C Temperature Source Oral Oral Pulse Rate 72 Pulse Rate [Apical] 67 Pulse Rhythm Regular Pulse Rhythm [Apical] Regular Pulse Strength Normal Pulse Strength [Apical] Normal Respiratory Rate 20 19 Respiratory Effort / Characteristics Non-Labored Spontaneous Non-Labored Spontaneous Respiratory Depth Normal Normal Respiratory Pattern Regular Regular Blood Pressure 110/63 Blood Pressure [Right Arm] 116/55 L Blood Pressure Mean 78 Blood Pressure Mean [Right Arm] 75 Blood Pressure Position Semi-fowlers Blood Pressure Position [Right Arm] Lying Pulse Oximetry 93 88 L 87 L Oxygen Delivery Method Room Air Room Air Room Air Oxygen Flow Rate 0 Sepsis Recent Fever Within 48 Hours Yes Sepsis New/Unexplained Change in Mental Status No Sepsis Action Taken by Nursing No Action Required Oxygen Flow Rate - Titration 2 Pulse Oximetry Post Tiitration 94 06/25/22 23:00 Temperature Temperature Source Pulse Rate Pulse Rate [Apical] 70 Pulse Rhythm Pulse Rhythm [Apical] Regular Pulse Strength Pulse Strength [Apical] Normal Respiratory Rate 20 Respiratory Effort / Characteristics Non-Labored Respiratory Depth Normal Respiratory Pattern Regular Blood Pressure Blood Pressure [Right Arm] 139/63 Blood Pressure Mean Blood Pressure Mean [Right Arm] 88 Blood Pressure Position Blood Pressure Position [Right Arm] Lying Pulse Oximetry 95 Oxygen Delivery Method Nasal Cannula Oxygen Flow Rate 2 Sepsis Recent Fever Within 48 Hours Sepsis New/Unexplained Change in Mental Status Sepsis Action Taken by Nursing Oxygen Flow Rate - Titration Pulse Oximetry Post Tiitration Laboratory Data Result diagrams: 06/25/22 19:21 06/25/22 19:21 Lab Results 06/25/22 06/25/22 06/25/22 Range/Units 19:21 19:21 19:21 WBC 8.44 (4.8-10.8) K/ul RBC 4.17 (3.93-5.22) M/uL Hgb 12.6 (12.0-16.0) g/dl Hct 37.7 (34.1-44.9) % MCV 90.4 (80.0-100.0) fL MCH 30.2 (25.0-34.0) pg MCHC 33.4 (32.0-36.0) g/dL RDW Std Deviation 47.5 H (36.4-46.3) fL RDW Coeff of Hank 14.3 (11.5-14.5) % Plt Count 181 (130-400) K/uL MPV 10.2 (9.4-12.3) fL Immature Gran % (Auto) 0.4 % Neut % (Auto) 86.9 % Lymph % (Auto) 5.7 % [place] % (Auto) 6.8 % Eos % (Auto) 0.0 % Baso % (Auto) 0.2 % Neut # (Auto) 7.34 H (1.4-6.5) K/uL Lymph # (Auto) 0.48 L (1.2-3.4) K/uL [place] # (Auto) 0.57 (0.24-0.82) K/uL Eos # (Auto) 0.00 (0-0.50) K/uL Baso # (Auto) 0.02 (0-0.2) K/uL Immature Gran # (Auto) 0.03 H (0.00-0.02) K/uL Sodium 137 (136-145) mmol/L Potassium 3.2 L (3.5-5.1) mmol/L Chloride 103 (98-107) mmol/L Carbon Dioxide 27 (21-32) mmol/L Anion Gap 7 (3-11) BUN 28 H (6-23) mg/dl Creatinine 0.81 (0.6-1.2) mg/dl Est Cr Clr Drug Dosing 79.7 ml/min Est GFR ( Amer) 81.2 ml/min Est GFR (Non-Af Amer) 70.1 ml/min BUN/Creatinine Ratio 34.6 H (10-20) Glucose 106 H (70-99(Fasting)) mg/dl Lactate (0.4-2.0) mmol/L Calcium 9.0 (8.5-10.1) mg/dl Magnesium (1.7-2.4) mg/dl Total Bilirubin 1.1 H (0.2-1.0) mg/dl AST 33 (13-39) U/L ALT 20 (7-52) U/L Alkaline Phosphatase 48 (34-104) U/L Troponin I High Sens (0-14) pg/ml B-Natriuretic Peptide (0-100) pg/ml Total Protein 5.9 L (6.0-8.3) gm/dl Albumin 3.5 (3.4-5.0) gm/dl Globulin 2.4 L (2.5-4.0) gm/dl Albumin/Globulin Ratio 1.5 (0.9-2) Procalcitonin (0-0.5) ng/ml Urine Color Yellow Urine Appearance Cloudy A (Clear) Urine pH 5.5 (4.5-7.5) Ur Specific [place] 1.021 (1.000-1.030) Urine Protein Trace H (Negative) Urine Glucose (UA) Negative (Negative) Urine Ketones Negative (Negative) Urine Blood 1+ H (Negative) Urine Nitrite Negative (Negative) Urine Bilirubin Negative (Negative) Urine Urobilinogen Negative (Negative) Ur Leukocyte Esterase 2+ H (Negative) Urine WBC (Auto) >30 H (0-5) /hpf Urine RBC (Auto) 0-4 (0-4) /hpf U Hyaline Cast (Auto) 5-10 H (0-5) /lpf U Epithel Cells (Auto) >30 H (0-5) /lpf Urine Bacteria (Auto) Negative (Negative) Ur Renal Epithelial Cell 5-10 H (0-5) /lpf SARS-CoV-2 (PCR) (Negative) Influenza Type A (PCR) (Neg) Influenza Type B (PCR) (Neg) RSV (RT-PCR) (Neg) 06/25/22 06/25/22 06/25/22 Range/Units 19:21 19:21 20:27 WBC (4.8-10.8) K/ul RBC (3.93-5.22) M/uL Hgb (12.0-16.0) g/dl Hct (34.1-44.9) % MCV (80.0-100.0) fL MCH (25.0-34.0) pg MCHC (32.0-36.0) g/dL RDW Std Deviation (36.4-46.3) fL RDW Coeff of Hank (11.5-14.5) % Plt Count (130-400) K/uL MPV (9.4-12.3) fL Immature Gran % (Auto) % Neut % (Auto) % Lymph % (Auto) % [place] % (Auto) % Eos % (Auto) % Baso % (Auto) % Neut # (Auto) (1.4-6.5) K/uL Lymph # (Auto) (1.2-3.4) K/uL [place] # (Auto) (0.24-0.82) K/uL Eos # (Auto) (0-0.50) K/uL Baso # (Auto) (0-0.2) K/uL Immature Gran # (Auto) (0.00-0.02) K/uL Sodium (136-145) mmol/L Potassium (3.5-5.1) mmol/L Chloride (98-107) mmol/L Carbon Dioxide (21-32) mmol/L Anion Gap (3-11) BUN (6-23) mg/dl Creatinine (0.6-1.2) mg/dl Est Cr Clr Drug Dosing ml/min Est GFR ( Amer) ml/min Est GFR (Non-Af Amer) ml/min BUN/Creatinine Ratio (10-20) Glucose (70-99(Fasting)) mg/dl Lactate (0.4-2.0) mmol/L Calcium (8.5-10.1) mg/dl Magnesium 1.6 L (1.7-2.4) mg/dl Total Bilirubin (0.2-1.0) mg/dl AST (13-39) U/L ALT (7-52) U/L Alkaline Phosphatase (34-104) U/L Troponin I High Sens 56.7 H* (0-14) pg/ml B-Natriuretic Peptide (0-100) pg/ml Total Protein (6.0-8.3) gm/dl Albumin (3.4-5.0) gm/dl Globulin (2.5-4.0) gm/dl Albumin/Globulin Ratio (0.9-2) Procalcitonin 4.40 H (0-0.5) ng/ml Urine Color Urine Appearance (Clear) Urine pH (4.5-7.5) Ur Specific [place] (1.000-1.030) Urine Protein (Negative) Urine Glucose (UA) (Negative) Urine Ketones (Negative) Urine Blood (Negative) Urine Nitrite (Negative) Urine Bilirubin (Negative) Urine Urobilinogen (Negative) Ur Leukocyte Esterase (Negative) Urine WBC (Auto) (0-5) /hpf Urine RBC (Auto) (0-4) /hpf U Hyaline Cast (Auto) (0-5) /lpf U Epithel Cells (Auto) (0-5) /lpf Urine Bacteria (Auto) (Negative) Ur Renal Epithelial Cell (0-5) /lpf SARS-CoV-2 (PCR) NEGATIVE (Negative) Influenza Type A (PCR) Negative (Neg) Influenza Type B (PCR) Negative (Neg) RSV (RT-PCR) Negative (Neg) 06/25/22 06/25/22 Range/Units 20:32 21:32 WBC (4.8-10.8) K/ul RBC (3.93-5.22) M/uL Hgb (12.0-16.0) g/dl Hct (34.1-44.9) % MCV (80.0-100.0) fL MCH (25.0-34.0) pg MCHC (32.0-36.0) g/dL RDW Std Deviation (36.4-46.3) fL RDW Coeff of Hank (11.5-14.5) % Plt Count (130-400) K/uL MPV (9.4-12.3) fL Immature Gran % (Auto) % Neut % (Auto) % Lymph % (Auto) % [place] % (Auto) % Eos % (Auto) % Baso % (Auto) % Neut # (Auto) (1.4-6.5) K/uL Lymph # (Auto) (1.2-3.4) K/uL [place] # (Auto) (0.24-0.82) K/uL Eos # (Auto) (0-0.50) K/uL Baso # (Auto) (0-0.2) K/uL Immature Gran # (Auto) (0.00-0.02) K/uL Sodium (136-145) mmol/L Potassium (3.5-5.1) mmol/L Chloride (98-107) mmol/L Carbon Dioxide (21-32) mmol/L Anion Gap (3-11) BUN (6-23) mg/dl Creatinine (0.6-1.2) mg/dl Est Cr Clr Drug Dosing ml/min Est GFR ( Amer) ml/min Est GFR (Non-Af Amer) ml/min BUN/Creatinine Ratio (10-20) Glucose (70-99(Fasting)) mg/dl Lactate 0.5 (0.4-2.0) mmol/L Calcium (8.5-10.1) mg/dl Magnesium (1.7-2.4) mg/dl Total Bilirubin (0.2-1.0) mg/dl AST (13-39) U/L ALT (7-52) U/L Alkaline Phosphatase (34-104) U/L Troponin I High Sens (0-14) pg/ml B-Natriuretic Peptide 259 H (0-100) pg/ml Total Protein (6.0-8.3) gm/dl Albumin (3.4-5.0) gm/dl Globulin (2.5-4.0) gm/dl Albumin/Globulin Ratio (0.9-2) Procalcitonin (0-0.5) ng/ml Urine Color Urine Appearance (Clear) Urine pH (4.5-7.5) Ur Specific [place] (1.000-1.030) Urine Protein (Negative) Urine Glucose (UA) (Negative) Urine Ketones (Negative) Urine Blood (Negative) Urine Nitrite (Negative) Urine Bilirubin (Negative) Urine Urobilinogen (Negative) Ur Leukocyte Esterase (Negative) Urine WBC (Auto) (0-5) /hpf Urine RBC (Auto) (0-4) /hpf U Hyaline Cast (Auto) (0-5) /lpf U Epithel Cells (Auto) (0-5) /lpf Urine Bacteria (Auto) (Negative) Ur Renal Epithelial Cell (0-5) /lpf SARS-CoV-2 (PCR) (Negative) Influenza Type A (PCR) (Neg) Influenza Type B (PCR) (Neg) RSV (RT-PCR) (Neg) Administered Medications Sodium Chloride (Nss 1000ml) 1,000 mls @ 125 mls/hr IV .Q8H STA Stop: 06/26/22 05:57 Last Admin: 06/25/22 22:29 Dose: 125 mls/hr Documented By: ANTHONY Discontinued Medications Cefepime HCl (Maxipime) 2,000 mg in 20 mls @ 5 mls/min IV NOW STA; Protocol Stop: 06/25/22 20:26 Last Admin: 06/25/22 21:02 Dose: 5 mls/min Documented By: RSJaren Potassium Chloride (K [place] / Wtr) 10 meq in 100 mls @ 100 mls/hr IV ONE ONE; Protocol Stop: 06/25/22 21:29 Last Infusion: 06/25/22 22:01 Dose: 0 mls/hr Documented By: Admin: 06/25/22 21:02 Dose: 100 mls/hr Documented By: RSL Sodium Chloride (Nss 1000ml) 500 mls @ 999 mls/hr IV .Q31M ONE Stop: 06/25/22 22:28 Last Infusion: 06/25/22 22:29 Dose: 0 mls/hr Documented By: Admin: 06/25/22 22:01 Dose: 999 mls/hr Documented By: RSJaren Magnesium Sulfate/Dextrose (Magnesium Sulfate / D5w) 1 gm in 100 mls @ 100 mls/hr IV NOW STA Stop: 06/25/22 23:38 Last Infusion: 06/26/22 00:17 Dose: 0 mls/hr Documented By: Admin: 06/25/22 22:53 Dose: 100 mls/hr Documented By: ANTHONY Imaging Data Radiologist's Impression: Head CT 06/25/22 20:22 CT head/brain wo con CLINICAL HISTORY: 77 years-old Female with ams. Acutely altered mental status TECHNIQUE: Multiple axial CT images of the head were obtained without contrast. A dose lowering technique was utilized adhering to the principles of ALARA. CT DOSE: 884.08 mGy.cm COMPARISON: 10/30/2006. FINDINGS: No acute intracranial hemorrhage, midline shift, intracranial mass, hydroc ephalus, territorial ischemia or abnormal extra-axial collection. Involutional changes. White matter hypodensities suggest chronic microvascular ischemic disease. Calcifications of the falx cerebri. The calvarium is intact. Prior bilateral lens repair. Polypoid mucosal thic kening of the left maxillary sinus. Mild mucosal thickening of the ethmoid air cells. IMPRESSION: No acute intracranial abnormality. ACT 112: Negative or not required by law. The above report was generated using voice recognition software. It may contain grammatical, syntax or spelling errors. Electronically signed by: Louis Prince M.D. 06/25/2022 9:00 PM Discharge Plan Visit Data Chief Complaint: Urinary Symptoms Stated Complaint: UTI (ON ABX) LETHARGIC ED Provider: Ham Gibbs Discharge Problem: AMS (altered mental status), Acute UTI (urinary tract infection), Elevated troponin, Elevated procalcitonin Forms Stand Alone Forms: My [facility]OLI Prescriptions Prescriptions: No Action atorvastatin [Lipitor] 20 mg tablet 20 mg PO QPM Qty: 90 0RF metoprolol tartrate 25 mg tablet 25 mg PO QAM Qty: 90 3RF fenofibrate nanocrystallized [Tricor] 48 mg tablet 48 mg PO QPM Qty: 90 3RF paroxetine HCl [Paxil] 40 mg tablet 40 mg PO QAM Qty: 90 3RF Centrum Complete 18-400 mg-mcg tablet 1 tab PO QPM cyanocobalamin (vitamin B-12) 1,000 mcg capsule 1,000 mcg PO QPM ascorbic acid (vitamin C) 500 mg tablet 500 mg PO BID albuterol sulfate 90 mcg/actuation HFA aerosol inhaler 1 inha INH Q6H PRN (Reason: shortness of breath) Qty: 6.7 0RF cholecalciferol (vitamin D3) [Vitamin D3] 25 mcg (1,000 unit) capsule 1,000 unit PO HS amoxicillin 500 mg capsule 2,000 mg PO DIRECTED PRN (Reason: PRIOR TO DENTAL APPT.) furosemide 40 mg tablet 40 mg PO DAILY aspirin 81 mg Tablet,Delayed Release (Dr/Ec) 81 mg PO DAILY levothyroxine 100 mcg tablet 100 mcg PO DAILY cephalexin 500 mg capsule 500 mg PO DAILY Trulicity 3 mg/0.5 mL pen injector 1 mg SUBCUT WK Referrals Referrals: Tl Doherty MD [Physician] -
[2022-06-25 20:17] LABS: Basophils # (auto) 0.02 K/uL (0-0.2); Basophils % (auto) 0.2 %; Hematocrit (blood only) 37.7 % (34.1-44.9); Hemoglobin 12.6 g/dl (12.0-16.0); Immature Granulocytes # (auto) 0.03 K/uL (0.00-0.02); Immature Granulocytes % (auto) 0.4 %; Lymphocytes # (auto) 0.48 K/uL (1.2-3.4); Lymphocytes % (auto) 5.7 %; Mean Corpuscular Hemoglobin 30.2 pg (25.0-34.0); Mean Corpuscular Hgb Conc 33.4 g/dL (32.0-36.0); Mean Corpuscular Volume 90.4 fL (80.0-100.0); Mean Platelet Volume 10.2 fL (9.4-12.3); Monocytes # (auto) 0.57 K/uL (0.24-0.82); Monocytes % (auto) 6.8 %; Neutrophils # (auto) 7.34 K/uL (1.4-6.5); Neutrophils % (auto) 86.9 %; Platelet Count 181 K/uL (130-400); RDW Coefficient of Variation 14.3 % (11.5-14.5); RDW Standard Deviation 47.5 fL (36.4-46.3); Red Blood Count 4.17 M/uL (3.93-5.22); White Blood Count 8.44 K/ul (4.8-10.8)
[2022-06-25 20:22] LABS: Appearance Urine Cloudy (Clear); Bacteria Urine Automated Negative (Negative); Bilirubin Urine Negative (Negative); Blood Urine 1+ (Negative); Color Urine Yellow; Epithelial Cell Urine Auto >30 /lpf (0-5); Glucose Urine UA Negative (Negative); Ketones Urine Negative (Negative); Leukocyte Esterase Urine 2+ (Negative); Nitrite Urine Negative (Negative); Protein Urine Trace (Negative); RBC Urine Automated 0-4 /hpf (0-4); Specific Gravity Urine 1.021 (1.000-1.030); Urobilinogen Urine Negative (Negative); WBC Urine Automated >30 /hpf (0-5); pH Urine 5.5 (4.5-7.5)
[2022-06-25] MEDS ORDERED: CEFEPIME 2,000 MG/20 ML VIAL IV STA (20:23)
[2022-06-25 20:27] LABS: Albumin Globulin Ratio 1.5 (0.9-2); Albumin Level 3.5 gm/dl (3.4-5.0); BUN Creatinine Ratio 34.6 (10-20); Bilirubin,Total 1.1 mg/dl (0.2-1.0); Creatinine Clr Calc Pharmacy 79.7 ml/min; Est GFR (African American) 81.2 ml/min; Est GFR (Non-African American) 70.1 ml/min; Globulin 2.4 gm/dl (2.5-4.0); Potassium 3.2 mmol/L (3.5-5.1); Total Protein 5.9 gm/dl (6.0-8.3)
[2022-06-25] MEDS ORDERED: POTASSIUM CHLORIDE / WTR 10 MEQ/100 ML PLCT IV ONE (20:30)
--- NOTE | 2022-06-25 21:01 | CT Scan Report ---
CT head/brain wo con CLINICAL HISTORY: 77 years-old Female with ams. Acutely altered mental status TECHNIQUE: Multiple axial CT images of the head were obtained without contrast. A dose lowering tech nique was utilized adhering to the principles of ALARA. CT DOSE: 884.08 mGy.cm COMPARISON: 10/30/2006. FINDINGS: No acute intracranial hemorrhage, midline shift, intracranial mass, hydrocephalus, territorial ischem ia or abnormal extra-axial collection. Involutional changes. White matter hypodensities suggest chron ic microvascular ischemic disease. Calcifications of the falx cerebri. The calvarium is intact. Prior bilateral lens repair. Polypoid mucosal thickening of the left maxilla ry sinus. Mild mucosal thickening of the ethmoid air cells. IMPRESSION: No acute intracranial abnormality. ACT 112: Negative or not required by law. The above report was generated using voice recognition software. It may contain grammatical, syntax o r spelling errors. Electronically signed by: Louis Prince M.D. 06/25/2022 9:00 PM
[2022-06-25 21:02] LABS: Magnesium 1.6 mg/dl (1.7-2.4)
[2022-06-25 21:19] LABS: Troponin I High Sensitivity 56.7 pg/ml (0-14)
[2022-06-25 21:28] LABS: Influenza A virus by PCR Negative (Neg); Influenza B virus by PCR Negative (Neg); RSV by PCR Negative (Neg); SARS CoV2 RNA(COVID-19)Cepheid NEGATIVE (Negative)
[2022-06-25] MEDS ORDERED: SODIUM CHLORIDE 0.9% 1000ML 500 ML IV ONE (21:58)
[2022-06-25] MEDS ORDERED: SODIUM CHLORIDE 0.9% 1000ML 1,000 ML IV STA (21:58)
[2022-06-25] MEDS ORDERED: MAGNESIUM SULFATE / D5W 1 GM/100 ML BAG IV STA (22:39)
--- NOTE | 2022-06-25 23:55 | History & Physical Report ---
Date of Service June 25, 2022 Assessment & Plan (1) AMS (altered mental status): Plan: Symptoms likely secondary to overall decreased intake to liquids and solids of the past several days. After receiving IV fluids in the emergency department, she reports feeling somewhat improved CT head is negative for acute findings Urinalysis suggestive of urinary tract infection (2) Acute UTI (urinary tract infection): Plan: Follow urine culture and sensitivity Empiric ceftriaxone 2 g IV daily (3) Elevated troponin: Plan: Troponin 56.7 upon admission The patient will be admitted to telemetry for serial cardiac enzymes, serial EKG's, cardiac rhythm monitoring and a 2-D echocardiogram with Dopplers. EKG with normal sinus rhythm at 68, with PACs, and nonspecific ST segment changes in lateral leads (4) CKD (chronic kidney disease) stage 3, GFR 30-59 ml/min: Plan: Creatinine usual range 0.81 (5) Acquired hypothyroidism: Plan: Continue levothyroxine 100 mcg daily (6) HTN (hypertension): Plan: Continue metoprolol tartrate Hold furosemide (7) Hypokalemia: Plan: Potassium 3.2 upon admission Correct with IV fluids, and recheck laboratories in a.m. (8) Hypomagnesemia: Plan: Magnesium 1.6 upon admission, replace IV and recheck laboratories in a.m. (9) Diabetes mellitus: Plan: Hold Trulicity Place on Accu-Cheks before meals and at bedtime with NovoLog coverage per scale Check a hemoglobin A1c (10) Hypercholesterolemia: Plan: Continue fenofibrate 40 mg daily and atorvastatin 20 mg daily Check a fasting lipid panel (11) Sleep apnea: Plan: CPAP at bedtime as needed (12) Mixed stress and urge urinary incontinence: (13) Idiopathic polyneuropathy: History of Present Illness Chief Complaint: The patient presents to the emergency department due to worsening confusion, generalized weakness, decreased oral intake to liquids and solids, and urinary frequency, urgency and dysuria worsening over the past several days Primary Care Provider: Jered Jones The patient is a 77-year-old female with a past medical history including right ankle osteoarthritis, CKD stage III, metabolic syndrome, pulmonary nodule, idiopathic polyneuropathy, mild asthma, atrial septal aneurysm, acquired hypothyroidism, hypertension, morbid obesity, depression, prediabetes, chronic diastolic heart failure, hypercholesterolemia, chronic low back pain status post lumbar spine surgery for spinal cord decompression, cervical spine fusion, vitamin D deficiency, sleep apnea and mixed stress and urge urinary incontinence. Patient presents emergency department as noted above. After receiving IV fluids she reports feeling significantly improved, but nowhere near baseline. Allergies Allergy/AdvReac Type Severity Reaction Status Date / Time No Known Allergies Allergy Mild Verified 06/25/22 21:59 Home Medications Medication Instructions Recorded Confirmed Type albuterol sulfate 90 mcg/actuation 1 inha inhalation Q6H PRN 10/24/18 06/25/22 Rx aerosol inhaler shortness of breath #6.7 grams multivitamin-ferrous 1 tab PO QPM 04/22/19 06/25/22 History fumarate-folic acid 18 mg-400 mcg tablet (Centrum Complete) cyanocobalamin (vitamin B-12) 1,000 mcg PO QPM 09/16/19 06/25/22 History 1,000 mcg capsule ascorbic acid (vitamin C) 500 mg 500 mg PO BID 09/24/20 06/25/22 History tablet cholecalciferol (vitamin D3) 25 1,000 unit PO HS 09/24/20 06/25/22 History mcg (1,000 unit) capsule (Vitamin D3) atorvastatin 20 mg tablet (Lipitor) 20 mg PO QPM #90 tabs 07/12/21 06/25/22 Rx metoprolol tartrate 25 mg tablet 25 mg PO QAM #90 tabs 08/23/21 06/25/22 Rx fenofibrate nanocrystallized 48 mg 48 mg PO QPM #90 tabs 12/21/21 06/25/22 Rx tablet (Tricor) paroxetine HCl 40 mg tablet (Paxil) 40 mg PO QAM #90 tabs 01/11/22 06/25/22 Rx amoxicillin 500 mg capsule 2,000 mg PO DIRECTED PRN PRIOR 06/25/22 06/25/22 History TO DENTAL APPT. aspirin 81 mg tablet,delayed 81 mg PO DAILY 06/25/22 06/25/22 History release cephalexin 500 mg capsule 500 mg PO DAILY 06/25/22 06/25/22 History dulaglutide 3 mg/0.5 mL 1 mg subcut WK 06/25/22 06/25/22 History subcutaneous pen injector (Trulicity) furosemide 40 mg tablet 40 mg PO DAILY 06/25/22 06/25/22 History levothyroxine 100 mcg tablet 100 mcg PO DAILY 06/25/22 06/25/22 History Past Med/Surg History Medical History (Updated 06/26/22 @ 01:44 by Horace Ocampo MD) Acid reflux controlled Anxiety and depression Atrial septal aneurysm PCP monitoring, noted per 2010 ECHO but no evidence on more recent 09/2018 ECHO BMI 50.0-59.9, adult Diabetes mellitus Hx of bladder infections recurrent/no recent issues Hyperlipidemia Hypertension Hypothyroidism Mixed stress and urge urinary incontinence + botox injections q6 months Morbid obesity PNA (pneumonia) (12/26/13) Reactive airway disease per records Sleep apnea Moderate sleep apnea/hypopnea with nocturnal hypoxemia per 01/15/19 sleep study- on CPAP Spinal stenosis Surgical History History of appendectomy History of cataract surgery (~2018) RT AND LEFT History of colonoscopy (~2011) History of lumbar fusion (~08/2017) History of total bilateral knee replacement History of total right hip arthroplasty Hx of cervical spine surgery (~09/2018) C4 corpectomy, ACDF C3-C6 fusion: 10/17/18: Grade view 1, MAC#3, ETT 7.5 at [facility] Family History Mother , age 49 Intestinal disorder Father , age 93 Congestive heart failure Social History Smoking Status: Never smoker Second Hand Exposure: No; Hx Alcohol Use: No Hx Substance Use: No Preferred Language: Stateless Communication Ability: Effective Visual Impairment: No Limitations Hearing Ability: Normal Coffee Machine Technician Required: No Beliefs That Will Affect Care: None marital status: Current Living Situation: Spouse current occupational status: employed current occupation: business management specialist other: 1 son, in [place] Feels Safe at Home: Yes Dental Care, Regularly: No Physical Activity Frequency: Does not Exercise Seatbelt Use: always Assistive Devices: Glasses Review of Systems Review of Systems: The patient denies chest pain, palpitations, shortness of breath, dyspnea on exertion, cough, lower extremity swelling, sore throat, fevers, chills, sweats, vomiting, diarrhea , constipation, abdominal pain, pelvic pain, blood in urine or stool, memory loss, loss of consciousness, rash, abnormal bruising or bleeding, focal weakness, numbness or tingling in arms or legs, generalized arthralgias or myalgias, neck pain, or night sweats. The review of systems is otherwise negative other than for that already noted above, and at least 10 systems have been reviewed. Physical Exam Physical Exam: The patient is awake, alert and oriented 3, well developed and well nourished, normocephalic and atraumatic, lying in bed and in no acute distress. HEENT--PERRL, EOMI, mucous membranes and oropharynx dry. Neck--supple. No JVD. No bruits. Thyroid normal, trachea midline, no adenopathy. Heart--normal S1 and S2. No murmurs, rubs or gallops. Lungs--clear bilaterally, no respiratory distress, no accessory muscle use. Abdomen--normal bowel sounds and soft. Nontender. Nondistended. Morbidly obese Extremities--no cyanosis or clubbing. No edema. Dermatologic--normal skin turgor, normal color, no abnormal lymph nodes, no rash. Neurologic--cranial nerves II through XII grossly intact. Rheumatologic--normal range of motion. Psychiatric--normal affect. Results & Data Results & Data ([facility]) Vital Signs (Past 12 Hours) Vital Signs Temp Pulse Pulse Resp BP BP Pulse Ox 06/25/22 23:00 70 20 139/63 95 06/25/22 19:30 87 L 06/25/22 19:31 37.5 C 67 19 116/55 L 88 L 06/25/22 19:18 37.5 C 72 20 110/63 93 O2 Del Method O2 Flow Rate 06/25/22 23:00 Nasal Cannula 2 06/25/22 19:30 Room Air 0 06/25/22 19:31 Room Air 06/25/22 19:18 Room Air Laboratory Results Laboratory Results WBC 8.44 K/ul (4.8-10.8) 06/25/22 19:21 RBC 4.17 M/uL (3.93-5.22) 06/25/22 19:21 Hgb 12.6 g/dl (12.0-16.0) 06/25/22 19:21 Hct 37.7 % (34.1-44.9) 06/25/22 19:21 MCV 90.4 fL (80.0-100.0) 06/25/22 19: MCH 30.2 pg (25.0-34.0) 06/25/22 19: MCHC 33.4 g/dL (32.0-36.0) 06/25/22 19: RDW Std Deviation 47.5 fL (36.4-46.3) H 06/25/22 19: RDW Coeff of Hank 14.3 % (11.5-14.5) 06/25/22 19: Plt Count 181 K/uL (130-400) 06/25/22 19: MPV 10.2 fL (9.4-12.3) 06/25/22 19: Immature Gran % (Auto) 0.4 % 06/25/22 19: Neut % (Auto) 86.9 % 06/25/22: Lymph % (Auto) 5.7 % 06/25/22: Bledsoe % (Auto) 6.8 % 06/25/22: Eos % (Auto) 0.0 % 06/25/22 19: Baso % (Auto) 0.2 % 06/25/22 19: Neut # (Auto) 7.34 K/uL (1.4-6.5) H 06/25/22: Lymph # (Auto) 0.48 K/uL (1.2-3.4) L 06/25/22 19: Bledsoe # (Auto) 0.57 K/uL (0.24-0.82) 06/25/22: Eos # (Auto) 0.00 K/uL (0-0.50) 06/25/22 19: Baso # (Auto) 0.02 K/uL (0-0.2) 06/25/22: Immature Gran # (Auto) 0.03 K/uL (0.00-0.02) H 06/25/22 19: Sodium 137 mmol/L (136-145) 06/25/22 19:21 Potassium 3.2 mmol/L (3.5-5.1) L 06/25/22 19: Chloride 103 mmol/L (98-107) 06/25/22 19: Carbon Dioxide 27 mmol/L (21-32) 06/25/22 19:21 Anion Gap 7 (3-11) 06/25/22 19:21 BUN 28 mg/dl (6-23) H 06/25/22 19:21 Creatinine 0.81 mg/dl (0.6-1.2) 06/25/22 19:21 Est Cr Clr Drug Dosing 79.7 ml/min 06/25/22 19:21 Est GFR ( Amer) 81.2 ml/min 06/25/22 19:21 Est GFR (Non-Af Amer) 70.1 ml/min 06/25/22 19:21 BUN/Creatinine Ratio 34.6 (10-20) H 06/25/22 19:21 Glucose 106 mg/dl (70-99(Fasting)) H 06/25/22 19:21 Lactate 0.5 mmol/L (0.4-2.0) 06/25/22 20:32 Calcium 9.0 mg/dl (8.5-10.1) 06/25/22 19:21 Magnesium 1.6 mg/dl (1.7-2.4) L 06/25/22 19:21 Total Bilirubin 1.1 mg/dl (0.2-1.0) H 06/25/22 19:21 AST 33 U/L (13-39) 06/25/22 19:21 ALT 20 U/L (7-52) 06/25/22 19:21 Alkaline Phosphatase 48 U/L (34-104) 06/25/22 19:21 Troponin I High Sens 56.7 pg/ml (0-14) H* 06/25/22 19:21 B-Natriuretic Peptide 259 pg/ml (0-100) H 06/25/22 21:32 Total Protein 5.9 gm/dl (6.0-8.3) L 06/25/22 19:21 Albumin 3.5 gm/dl (3.4-5.0) 06/25/22 19:21 Globulin 2.4 gm/dl (2.5-4.0) L 06/25/22 19:21 Albumin/Globulin Ratio 1.5 (0.9-2) 06/25/22 19:21 Procalcitonin 4.40 ng/ml (0-0.5) H 06/25/22 19:21 Urine Color Yellow 06/25/22 19:21 Urine Appearance Cloudy (Clear) A 06/25/22 19:21 Urine pH 5.5 (4.5-7.5) 06/25/22 19:21 Ur Specific [place] 1.021 (1.000-1.030) 06/25/22 19:21 Urine Protein Trace (Negative) H 06/25/22 19:21 Urine Glucose (UA) Negative (Negative) 06/25/22 19: Urine Ketones Negative (Negative) 06/25/22 19:21 Urine Blood 1+ (Negative) H 06/25/22 19:21 Urine Nitrite Negative (Negative) 06/25/22 19: Urine Bilirubin Negative (Negative) 06/25/22 19: Urine Urobilinogen Negative (Negative) 06/25/22 19: Ur Leukocyte Esterase 2+ (Negative) H 06/25/22 19:21 Urine WBC (Auto) >30 /hpf (0-5) H 06/25/22 19:21 Urine RBC (Auto) 0-4 /hpf (0-4) 06/25/22 19:21 U Hyaline Cast (Auto) 5-10 /lpf (0-5) H 06/25/22 19:21 U Epithel Cells (Auto) >30 /lpf (0-5) H 06/25/22 19:21 Urine Bacteria (Auto) Negative (Negative) 06/25/22 19:21 Ur Renal Epithelial Cell 5-10 /lpf (0-5) H 06/25/22 19:21 SARS-CoV-2 (PCR) NEGATIVE (Negative) 06/25/22 20:27 Influenza Type A (PCR) Negative (Neg) 06/25/22 20:27 Influenza Type B (PCR) Negative (Neg) 06/25/22 20:27 RSV (RT-PCR) Negative (Neg) 06/25/22 20:[address] 06/25/22 20:22 CT head/brain wo con CLINICAL HISTORY: 77 years-old Female with ams. Acutely altered mental status TECHNIQUE: Multiple axial CT images of the head were obtained without contrast. A dose lowering technique was utilized adhering to the principles of ALARA. CT DOSE: 884.08 mGy.cm COMPARISON: 10/30/2006. FINDINGS: No acute intracranial hemorrhage, midline shift, intracranial mass, hydrocephalus, territorial ischemia or abnormal extra-axial collection. Involutional changes. White matter hypodensities suggest chronic microvascular ischemic disease. Calcifications of the falx cerebri. The calvarium is intact. Prior bilateral lens repair. Polypoid mucosal thicke kermit of the left maxillary sinus. Mild mucosal thickening of the ethmoid air cells. IMPRESSION: No acute intracranial abnormality. ACT 112: Negative or not required by law. The above report was generated using voice recognition software. It may contain grammatical, syntax or spelling errors. Electronically signed by: Louis Prince M.D. 06/25/2022 9:00 PM Code Status & VTE Plan Code Status Full code VTE Prophylaxis Plan VTE Prophylaxis will be ordered: Yes PG Care Time/CCT Total # of Minutes Spent Total Time Spent with Patient: Total time spent is greater than 50% in coordination of care (as documented) at patient's floor/unit and/or counseling patient: Coding Level of Care Code 12178 Initial Inpt Care Lvl 3 Diagnoses AMS (altered mental status) R41.82 Acute UTI (urinary tract infection) N39.0 Elevated troponin R77.8 CKD (chronic kidney disease) stage 3, GFR 30-59 ml/min N18.30 Acquired hypothyroidism E03.9 HTN (hypertension) I10 Hypertension type: essential hypertension Hypokalemia E87.6 Hypomagnesemia E83.42 Diabetes mellitus E11.9 Hypercholesterolemia E78.00 Sleep apnea G47.30 Mixed stress and urge urinary incontinence N39.46 Idiopathic polyneuropathy G60.9 (1) HTN (hypertension) Hypertension type: essential hypertension Qualified Code(s): I10 - Essential (primary) hypertension
[2022-06-26] MEDS ORDERED: GLUCOSE 40% GEL 15 GM TUBE PO PRN (02:28)
[2022-06-26] MEDS ORDERED: ONDANSETRON INJ 2 MG/ML 2 ML VIAL IV PRN (02:28)
[2022-06-26] MEDS ORDERED: CARBOHYDRATES FOR HYPOGLYCEMIA PO PRN (02:28)
[2022-06-26] MEDS ORDERED: ALBUTEROL HFA 8 GM INHALER INH PRN (02:28)
[2022-06-26] MEDS ORDERED: GLUCAGON FOR INJ 1 MG VIAL SQ PRN (02:28)
[2022-06-26] MEDS ORDERED: GLUCOSE 10 TAB/TUBE PO PRN (02:28)
[2022-06-26] MEDS ORDERED: DEXTROSE 50% 50 ML SYRINGE IV PRN (02:28)
[2022-06-26] MEDS ORDERED: ACETAMINOPHEN 325 MG TAB PO PRN (02:28)
[2022-06-26] MEDS ORDERED: INFLUENZA VACCINE HIGH DOSE PF 65+ 0.7 ML SYR IM ONE (02:44)
[2022-06-26] MEDS ORDERED: NSS + 20MEQ KCL 20 MEQ/1,000 ML BAG IV SCH (03:00)
[2022-06-26 03:32] LABS: Basophils # (auto) 0.02 K/uL (0-0.2); Basophils % (auto) 0.3 %; Hematocrit (blood only) 38.7 % (34.1-44.9); Hemoglobin 12.8 g/dl (12.0-16.0); Immature Granulocytes # (auto) 0.05 K/uL (0.00-0.02); Immature Granulocytes % (auto) 0.6 %; Lymphocytes # (auto) 0.27 K/uL (1.2-3.4); Lymphocytes % (auto) 3.5 %; Mean Corpuscular Hemoglobin 30.2 pg (25.0-34.0); Mean Corpuscular Hgb Conc 33.1 g/dL (32.0-36.0); Mean Corpuscular Volume 91.3 fL (80.0-100.0); Mean Platelet Volume 9.1 fL (9.4-12.3); Monocytes # (auto) 0.59 K/uL (0.24-0.82); Monocytes % (auto) 7.6 %; Platelet Count 161 K/uL (130-400); RDW Coefficient of Variation 14.1 % (11.5-14.5); RDW Standard Deviation 47.7 fL (36.4-46.3); Red Blood Count 4.24 M/uL (3.93-5.22); White Blood Count 7.73 K/ul (4.8-10.8)
[2022-06-26 04:24] LABS: Albumin Globulin Ratio 1.2 (0.9-2); Albumin Level 3.3 gm/dl (3.4-5.0); BUN Creatinine Ratio 33.8 (10-20); Bilirubin,Total 1.3 mg/dl (0.2-1.0); Calcium 8.8 mg/dl (8.5-10.1); Chol HDL Ratio 2.3 (0-5); Creatinine Clr Calc Pharmacy 83.8 ml/min; Est GFR (African American) 90.6 ml/min; Est GFR (Non-African American) 78.1 ml/min; Globulin 2.7 gm/dl (2.5-4.0); Magnesium 1.8 mg/dl (1.7-2.4); Potassium 3.6 mmol/L (3.5-5.1); Troponin I High Sensitivity 39.6 pg/ml (0-14)
[2022-06-26] MEDS: LEVOTHYROXINE SODIUM 100 MCG TABLET PO SCH (06:02)
[2022-06-26] MEDS: cefTRIAXone SODIUM 2,000 MG in DEXTROSE 5% 50 ML IV SCH (06:02)
--- NOTE | 2022-06-26 06:43 | XRay Report ---
XR chest 1V portable HISTORY: 77 years-old Female shortness of breath acute shortness of breath COMPARISON: Chest radiograph 06/01/2021 TECHNIQUE: AP view of the chest FINDINGS: Cardiac silhouette is mildly enlarged. No pneumothorax, pleural effusion, airspace consolidation or o vert pulmonary edema. Subsegmental left basilar atelectasis. Degenerative changes of the shoulders an d spine. Cervical spinal fusion hardware. IMPRESSION: No acute process. ACT 112: Negative or not required by law. The above report was generated using voice recognition software. It may contain grammatical, syntax o r spelling errors. Electronically signed by: Louis Prince M.D. 06/26/2022 6:42 AM
[2022-06-26] MEDS ORDERED: INSULIN ASPART PER UNIT SC SCH (07:30)
[2022-06-26] MEDS: ASCORBIC ACID 500 MG TAB PO SCH ×2 (09:27→20:06)
[2022-06-26] MEDS: METOPROLOL TARTRATE 25 MG TAB PO SCH (09:27)
[2022-06-26] MEDS: PARoxetine HCL 20 MG TAB PO SCH (09:27)
[2022-06-26] MEDS: ASPIRIN 81 MG ECTAB PO SCH (09:27)
--- NOTE | 2022-06-26 12:18 | Hospitalist Progress Note ---
Date of Service June 26, 2022 Assessment & Plan (1) AMS (altered mental status): Plan: Symptoms likely secondary to overall decreased intake to liquids and solids of the past several days. - After receiving IV fluids in the emergency department, she reports feeling somewhat improved - CT head is negative for acute findings - Urinalysis suggestive of urinary tract infection also w/ elevated procalcitonin at 4.40 which would support dx of infection - Alert and oriented now - Suspect secondary to metabolic encephalopathy from UTI + poor oral intake (2) Acute UTI (urinary tract infection): Plan: Follow urine culture and sensitivity (pending presently) - Empiric ceftriaxone 2 g IV daily and tailor based on culture results (3) Elevated troponin: Plan: Troponin 56.7 on admit --> f/u 39.6 - The patient will be admitted to telemetry for serial cardiac enzymes, serial EKGs, and echo - EKG with normal sinus rhythm at 68, with PACs, and nonspecific ST segment changes in lateral lead - given lack of cp/dyspnea suspect this represents myocardial demand ischemia as opposed to unstable plaque (4) CKD (chronic kidney disease) stage 3, GFR 30-59 ml/min: Plan: - Creatinine usual range 0.81 (5) Acquired hypothyroidism: Plan: - Continue levothyroxine 100 mcg daily (6) HTN (hypertension): Plan: - Continue metoprolol tartrate (note: unusual dose of 25mg daily) - Resume furosemide (initially was held) (7) Hypokalemia: Plan: Potassium 3.2 upon admission - Correct with IV fluids mixed with KCl, and recheck laboratories in a.m. (8) Hypomagnesemia: Plan: - Magnesium 1.6 upon admission, replaced/resolved (9) Hypercholesterolemia: Plan: - Continue fenofibrate 48 mg daily and atorvastatin 20 mg daily - Checked a fasting lipid panel which was WNL (10) Sleep apnea: Plan: - CPAP at bedtime as needed - was placed on supplemental O2 overnight but needs to be placed on cpap (11) Morbid obesity with BMI of 50.0-59.9, adult: Plan: - Pt is NOT diabetic, this was documented in error - Takes Trulicity for management of obesity and weight loss - Last a1c 5.4% in 03/2021, repeat pending (will not be run until tomorrow d/t lab staff shortages on weekends) - Stop accuchecks, diabetic diet, and insulin coverage Plan Given elevated trop, will hold on telemetry for today and anticipate if not discharged tomorrow can be downgraded to med/surg. PT/OT eval. No needs for repeat labs in AM. D/c planning. Plan to be d/w Dr. Mckee. Admission and Anticipated Discharge Date Admission Date: June 25, 2022 Subjective Patient seen on daily rounds this morning. She is resting comfortably in bed, offers no complaints. Reports that she came in due to feeling "very sick" yesterday. Had a fever of 101F and had urinary frequency and odor. H/o frequent UTIs in the past and is to be on prophylactic Keflex but hasn't been able to get it from her pharmacy as it has been closed for several days. Denies cp or dyspnea. She lives alone [place] a [place]. Asking when she can be discharged home. Also states that she is not diabetic and is asking why her blood sugars are being checked. She takes Trulicity but states that her former PCP put her on that for weight loss and she has been on it "for years." She does not recall the name of the provider who is currently filling/prescribing this as she notes her former PCP last year. Review of Systems Review of Systems: All systems reviewed and are unremarkable except as noted in HPI and below. Denies fatigue, headache, nasal congestion, sore throat, cough, chest pain, shortness of breath, palpitations, orthopnea, PND, abdominal pain, n/v/d, constipation, dysuria, hematuria, back pain, joint pain or swelling, easy bruising or bleeding, skin lesions or rashes. Physical Exam Physical Exam: GENERAL: 77 yo Well-developed, well-nourished obese WF. NAD. LUNGS: Clear to auscultation bilaterally. No W/R/R. CARDIOVASCULAR: Regular rate and rhythm. ABDOMEN: Soft, obese, non-tender and non-distended. BS normoactive x 4 quad. EXTREMITIES: No edema. Non-tender. Peripheral pulses +2/4. NEUROLOGIC: A&O x3. Nonfocal PSYCHIATRIC: Cooperative. Appropriate mood and affect. SKIN: Warm, dry, intact. Results & Data Results & Data ([facility]) Vital Signs (Past 12 Hours) Vital Signs Temp Pulse Pulse Resp BP Pulse Ox O2 Del Method 10/30/22 12:10 Room Air 06/26/22 12:08 66 06/26/22 12:02 36.7 C 66 18 152/83 H 90 Room Air 06/26/22 10:53 Room Air 06/26/22 07:50 37.2 C 73 16 129/71 97 Nasal Cannula 06/26/22 08:08 70 06/26/22 05:11 37 C 06/26/22 04:36 73 06/26/22 03:21 39.0 C H 72 20 153/76 H 99 Nasal Cannula 06/26/22 02:31 Nasal Cannula 06/26/22 02:31 36.9 C 75 20 138/63 95 Nasal Cannula 06/26/22 01:00 71 16 153/79 H 98 Room Air O2 Flow Rate 06/26/22 12:10 06/26/22 12:08 06/26/22 12:02 06/26/22 10:53 06/26/22 07:50 2 06/26/22 08:08 06/26/22 05:11 06/26/22 04:36 06/26/22 03:21 2 06/26/22 02:31 2 06/26/22 02:31 2 06/26/22 01:00 Laboratory Results 06/26/22 03:22 06/26/22 03:22 PG Care Time/CCT Total # of Minutes Spent Total Time Spent with Patient: Total time spent is greater than 50% in coordination of care (as documented) at patient's floor/unit and/or counseling patient: Coding Level of Care Code 34191 Subseq Hosp Care Lvl 2 Diagnoses AMS (altered mental status) R41.82 Acute UTI (urinary tract infection) N39.0 Elevated troponin R77.8 CKD (chronic kidney disease) stage 3, GFR 30-59 ml/min N18.30 Acquired hypothyroidism E03.9 HTN (hypertension) I10 Hypertension type: essential hypertension Hypokalemia E87.6 Hypomagnesemia E83.42 Hypercholesterolemia E78.00 Sleep apnea G47.30 Morbid obesity with BMI of 50.0-59.9, adult E66.01; Z68.43 (1) HTN (hypertension) Hypertension type: essential hypertension Qualified Code(s): I10 - Essential (primary) hypertension
[2022-06-26] MEDS: FUROSEMIDE 40 MG TAB PO SCH (13:33)
[2022-06-26] MEDS ORDERED: CHOLECALCIFEROL 1,000 UNITS 25 MCG TAB PO SCH (21:00)
[2022-06-26] MEDS ORDERED: ATORVASTATIN 20 MG TAB PO SCH (21:00)
[2022-06-26] MEDS ORDERED: CEROVITE ADV FORMULA TAB PO SCH (21:00)
[2022-06-26] MEDS ORDERED: CYANOCOBALAMIN (B-12) 500 MCG TABLET PO SCH (21:00)
[2022-06-26] MEDS ORDERED: FENOFIBRATE NANOCRYSTALLIZED 48 MG TABLET PO SCH (21:00)
--- NOTE | 2022-06-26 21:37 | Electrocardiogram Report ---
Test Reason : Blood Pressure : / mmHG Vent. Rate : 068 BPM Atrial Rate : 068 BPM P-R Int : 150 ms QRS Dur : 086 ms QT Int : 416 ms P-R-T Axes : 038 011 018 degrees QTc Int : 442 ms Sinus rhythm with Premature atrial complexes and Premature ventricular complexes Nonspecific ST and T wave abnormality Abnormal ECG When compared with ECG of 10-MAY-2021 14:12, Premature supraventricular complexes are now Present Premature ventricular complexes are now Present Confirmed by Miguel Adams ([id number]) on 06/26/2022 9:36:55 PM Referred By: REFERRED SELF Confirmed By:Miguel Adams
[2022-06-27] MEDS: cefTRIAXone SODIUM 2,000 MG in DEXTROSE 5% 50 ML IV SCH (05:05)
[2022-06-27] MEDS: LEVOTHYROXINE SODIUM 100 MCG TABLET PO SCH (05:30)
[2022-06-27 06:50] LABS: Basophils # (auto) 0.03 K/uL (0-0.2); Basophils % (auto) 0.6 %; Eosinophils # (auto) 0.06 K/uL (0-0.50); Eosinophils % (auto) 1.2 %; Hematocrit (blood only) 35.4 % (34.1-44.9); Hemoglobin 11.7 g/dl (12.0-16.0); Immature Granulocytes # (auto) 0.03 K/uL (0.00-0.02); Immature Granulocytes % (auto) 0.6 %; Lymphocytes # (auto) 0.61 K/uL (1.2-3.4); Lymphocytes % (auto) 11.9 %; Mean Corpuscular Hemoglobin 29.5 pg (25.0-34.0); Mean Corpuscular Hgb Conc 33.1 g/dL (32.0-36.0); Mean Corpuscular Volume 89.2 fL (80.0-100.0); Monocytes # (auto) 0.76 K/uL (0.24-0.82); Monocytes % (auto) 14.8 %; Neutrophils # (auto) 3.65 K/uL (1.4-6.5); Neutrophils % (auto) 70.9 %; Platelet Count 163 K/uL (130-400); RDW Coefficient of Variation 13.9 % (11.5-14.5); RDW Standard Deviation 45.4 fL (36.4-46.3); Red Blood Count 3.97 M/uL (3.93-5.22); White Blood Count 5.14 K/ul (4.8-10.8)
[2022-06-27 07:14] LABS: Albumin Globulin Ratio 1.4 (0.9-2); Albumin Level 3.3 gm/dl (3.4-5.0); BUN Creatinine Ratio 32.8 (10-20); Bilirubin,Total 0.5 mg/dl (0.2-1.0); Calcium 8.4 mg/dl (8.5-10.1); Creatinine Clr Calc Pharmacy 99.6 ml/min; Est GFR (African American) 101.3 ml/min; Est GFR (Non-African American) 87.4 ml/min; Globulin 2.4 gm/dl (2.5-4.0); Magnesium 1.8 mg/dl (1.7-2.4); Potassium 3.2 mmol/L (3.5-5.1); Total Protein 5.7 gm/dl (6.0-8.3)
[2022-06-27 07:34] LABS: Estimated Average Glucose 103 mg/dl; Hemoglobin A1C 5.2 % (4.5-5.6)
[2022-06-27] MEDS: FUROSEMIDE 40 MG TAB PO SCH (07:36)
[2022-06-27] MEDS: ASPIRIN 81 MG ECTAB PO SCH (07:36)
[2022-06-27] MEDS: PARoxetine HCL 20 MG TAB PO SCH (07:36)
[2022-06-27] MEDS: METOPROLOL TARTRATE 25 MG TAB PO SCH (07:37)
[2022-06-27] MEDS: ASCORBIC ACID 500 MG TAB PO SCH (07:37)
[2022-06-27] MEDS ORDERED: POTASSIUM CHLORIDE CRTAB 20 MEQ TABCR PO STA (09:18)
--- NOTE | 2022-07-11 21:09 | Discharge Summary ---
Date of Service June 27, 2022 Admission HPI Per Admitting Provider The patient is a 77-year-old female with a past medical history including right ankle osteoarthritis, CKD stage III, metabolic syndrome, pulmonary nodule, idiopathic polyneuropathy, mild asthma, atrial septal aneurysm, acquired hypothyroidism, hypertension, morbid obesity, depression, prediabetes, chronic diastolic heart failure, hypercholesterolemia, chronic low back pain status post lumbar spine surgery for spinal cord decompression, cervical spine fusion, vitamin D deficiency, sleep apnea and mixed stress and urge urinary incontinence. Patient presents emergency department as noted above. After receiving IV fluids she reports feeling significantly improved, but nowhere near baseline. Principal Diagnosis Acute confusion Dehydration Possible viral illness Discharge Exam Constitutional WD/WN, vitals as above Respiratory normal respiratory effort, lungs clear to auscultation Cardiovascular RRR, no murmur, no edema Gastrointestinal (Abdomen) normal bowel sounds, soft, nontender, no hepatosplenomegaly Psychiatric A+Ox3, euthymic affect Discharge Data Allergies Allergy/AdvReac Type Severity Reaction Status Date / Time No Known Allergies Allergy Mild Verified 06/25/22 21:59 Consultations 06/25/22 23:05 ED Decision to Admit Stat Ordered Studies 06/25/22 20:22 CT head/brain wo con Stat IMPRESSION: No acute intracranial abnormality. Hospital Course (1) AMS (altered mental status): Fannie Stringer is a 77 year old female admitted to [facility] from June 25 - 2021 due to acute confusion and chills. She was treated for a urine tract infection however subsequent culture was negative. Blood cultures were negative at 24 hours. She was diagnosed with acute dehydration likely as a combination of Lasix and reduced oral intake in setting of a possible viral illness. Lasix was initially held and she was treated with intravenous fluids. She improved over 24 hours and given no evidence of a bacterial infection antibiotics have been discontinued. She will continue her chronic suppressive antibiotic regimen with Keflex. Due to low potassium levels (K 3.2 on admission) recommended starting supplementation as long as she is taking Lasix. (2) Acute UTI (urinary tract infection): (3) Elevated troponin: (4) CKD (chronic kidney disease) stage 3, GFR 30-59 ml/min: (5) Acquired hypothyroidism: (6) HTN (hypertension): (7) Hypokalemia: (8) Hypomagnesemia: - Magnesium 1.6 upon admission, replaced/resolved (9) Hypercholesterolemia: (10) Sleep apnea: (11) Morbid obesity with BMI of 50.0-59.9, adult: Total Time Total Time Spent Total Time Spent (In Minutes): 40 Discharge Plan Discharge Items Patient Disposition: Home - Self-Care Reason For Visit: UTI, CONFUSION Discharge Diagnosis: Acute confusion Dehydration Possible viral illness Activity: Resume your previous activity Non-emergency contact: Primary Care Provider Call non-emergency contact if: you have any medication questions and your symptoms worsen Follow-up/Referrals: Jered Jones PA-C [Primary Care Provider] - Diet: Heart Healthy Addtl Attending Provider Instructions: You were admitted to [facility] from June 25 - 2021 due to acute confusion and chills. You were treated for a urine tract infection however subsequent culture was negative. Blood cultures are negative at 24 hours - you will be called if these are subsequently positive. You were diagnosed with acute dehydration likely as a combination of Lasix and reduced oral intake in setting of a possible viral illness. Lasix was initially stopped and you were treated with intravenous fluids. You now appear improved and given no evidence of a bacterial infection antibiotics have been discontinued. Please continue on your routine chronic suppressive antibiotic regimen with Keflex. Due to low potassium levels recommend starting supplementation as long as you are taking Lasix as this is likely the cause of your reduced potassium level. Pending Studies at Discharge: No Stand-Alone Forms: My [facility] Medications and DC Order Prescriptions: New potassium chloride 20 mEq tablet extended release 20 meq PO DAILY Qty: 30 0RF Continued atorvastatin [Lipitor] 20 mg tablet 20 mg PO QPM Qty: 90 0RF metoprolol tartrate 25 mg tablet 25 mg PO QAM Qty: 90 3RF fenofibrate nanocrystallized [Tricor] 48 mg tablet 48 mg PO QPM Qty: 90 3RF paroxetine HCl [Paxil] 40 mg tablet 40 mg PO QAM Qty: 90 3RF Centrum Complete 18-400 mg-mcg tablet 1 tab PO QPM cyanocobalamin (vitamin B-12) 1,000 mcg capsule 1,000 mcg PO QPM ascorbic acid (vitamin C) 500 mg tablet 500 mg PO BID albuterol sulfate 90 mcg/actuation HFA aerosol inhaler 1 inha INH Q6H PRN (Reason: shortness of breath) Qty: 6.7 0RF cholecalciferol (vitamin D3) [Vitamin D3] 25 mcg (1,000 unit) capsule 1,000 unit PO HS amoxicillin 500 mg capsule 2,000 mg PO DIRECTED PRN (Reason: PRIOR TO DENTAL APPT.) furosemide 40 mg tablet 40 mg PO DAILY aspirin 81 mg Tablet,Delayed Release (Dr/Ec) 81 mg PO DAILY levothyroxine 100 mcg tablet 100 mcg PO DAILY cephalexin 500 mg capsule 500 mg PO DAILY Trulicity 3 mg/0.5 mL pen injector 1 mg SUBCUT WK Discharge Orders: Discharge Order (Routine); Ordered 06/27/22 Ordered By: Jacoby Mckee Admission Data Admit Date/Time: 06/25/22 23:54 Attending Provider: Jacoby Mckee Admit Provider: Horace Ocampo Primary Care Provider: Jered Jones Other Providers: Horace Ocampo Other Interventions: Discharge Summary Assessment (RN) Last Done: 06/27/22 15:22 Coding Level of Care Code D/C DAY MANAGEMENT >30 MINS Diagnoses AMS (altered mental status) R41.82 Acute UTI (urinary tract infection) N39.0 Elevated troponin R77.8 CKD (chronic kidney disease) stage 3, GFR 30-59 ml/min N18.30 Acquired hypothyroidism E03.9 HTN (hypertension) I10 Hypertension type: essential hypertension Hypokalemia E87.6 Hypomagnesemia E83.42 Hypercholesterolemia E78.00 Sleep apnea G47.30 Morbid obesity with BMI of 50.0-59.9, adult E66.01; Z68.43
== END 2022-06-27 16:00 | disposition home or self-care (01) | DRG 690 ==
LOC: ED 19:05 → 4W 23:54 → SUATTDRO 23:54 → 4W 06-26 01:46 → 2N 06-26 11:54